=== PATIENT | male | born 1935 | race Caucasian/White ===

== ENCOUNTER → 2017-10-22 | Outpatient (CLI) | payer MEDICARE, BC ==
--- NOTE | 2017-10-22 08:55 | XR ---
Lumbosacral spine HISTORY: M 54.89, M 46.1 5 views of lumbosacral spine No evident spondylolysis or spondylolisthesis. Lumbar vertebral bodies show preserved height. Bone mi neralization is reduced. Mild anterior wedging present at T12, possibly mild at L1. There is extensiv e spondylosis. Loss of disc height present at the intervertebral levels is noted with associated vacu um phenomenon. Dense vascular calcifications are present. Surgical clips are present in the right upp er quadrant. Sclerosis present in the posterior elements of the lower lumbar spine. IMPRESSION: Degenerative disc disease, facet arthropathy, osteopenia. Mild anterior compression defor mity T12. There is resulting mild kyphosis. Additional findings above.
--- NOTE | 2017-10-22 13:58 | XR ---
Right hip HISTORY: M 46.1 2 views of the right hip There is dense vascular calcification noted incidentally. Bone mineralization is mildly reduced. Alig nment, joint space are within normal limits. Mild marginal spurring present. IMPRESSION: Osteopenia, mild osteoarthritis.
== END | disposition home or self-care (01) ==
LOC: RADXRMAIN 07:13
PROVIDERS: ATTEND Family Medicine
DX: M51.37 Other intervertebral disc degeneration, lumbosacral region (principal); M47.817 Spondylosis without myelopathy or radiculopathy, lumbosacral region; M46.97 Unspecified inflammatory spondylopathy, lumbosacral region; M85.88 Other specified disorders of bone density and structure, other site; M16.11 Unilateral primary osteoarthritis, right hip
CPT/HCPCS: 72110; 73502

== ENCOUNTER → 2021-10-30 | Outpatient (CLI) | payer MEDICARE, BC ==
--- NOTE | 2021-10-30 14:38 | MR ---
EXAMINATION TYPE: MR brain wo/w con DATE OF EXAM: 10/30/2021 COMPARISON: None HISTORY: Neoplasm, atypical dementia, hallucinations, age related cognitive decline TECHNIQUE: Multiplanar, multisequence images of the brain and brainstem is performed without and with IV contras t, utilizing 7 mL intravenous Gadavist . FINDINGS: There is motion on the exam. Diffusion weighted images demonstrate no evidence of a recent infarct or other diffusion abnormality. There is no extra-axial fluid collection, and periventricular, pericallosal and subcortical conflue nt and scattered hyperintensities are present on inversion recovery T2-weighted sequences. The ventr icular system and cisternal spaces are normal in size and appearance. The brain volume shows age-rel ated atrophy. Midline structures demonstrate normal morphology. The craniocervical junction appears within normal limits. Post contrast images demonstrate no abnormal enhancement. The dural venous sinuses appear pa tent. The visualized sinuses are clear and the globes are intact. IMPRESSION: Age-related atrophy and probable chronic small vessel ischemia. There is motion on the ex am.
== END | disposition home or self-care (01) ==
LOC: RADMRIMAIN 09:23
PROVIDERS: ATTEND Psychiatry & Neurology Neurology
DX: G31.9 Degenerative disease of nervous system, unspecified (principal)
CPT/HCPCS: 70553; A9585

== ENCOUNTER 2021-11-10 18:28 | Observation (INO) | payer MEDICARE, BC ==
[2021-11-10 19:03] LABS: Glucose,Whole Blood 91 mg/dL (75-99)
[2021-11-10] MEDS ORDERED: ACETAMINOPHEN TAB 500 MG TAB PO STA (19:03)
[2021-11-10 19:32] LABS: Appearance,Urine Clear (Clear); Bacteria,Urine Occasional /hpf; Bilirubin,Urine Negative (Negative); Blood,Urine Trace (Negative); Color,Urine Yellow; Glucose,Urine (UA) Negative (Negative); Hyaline Casts,Urine 4 /lpf (0-2); Ketones,Urine Negative (Negative); Leukocyte Esterase,Urine Trace (Negative); Mucus,Urine Many /hpf; Nitrite,Urine Negative (Negative); PH, Urine 5.5 (5.0-8.0); Protein,Urine 1+ (Negative); RBC,Urine 2 /hpf (0-5); Specific Gravity,Urine 1.027 (1.001-1.035); Squamous Epithelial Cell,Urine 1 /hpf (0-4); Urobilinogen,Urine <2.0 mg/dL (<2.0); WBC,Urine 2 /hpf (0-5)
[2021-11-10 19:33] LABS: Basophils % (A) 1 %; Eosinophils % (A) 0 %; HCT 36.4 % (39.0-53.0); HGB 11.9 gm/dL (13.0-17.5); Lymphocytes # (A) 0.7 k/uL (1.0-4.8); Lymphocytes % (A) 12 %; MCH 31.9 pg (25.0-35.0); MCHC 32.6 g/dL (31.0-37.0); Mean Platelet Volume 9.3; Monocytes # (A) 0.6 k/uL (0-1.0); Monocytes % (A) 10 %; Neutrophils # (A) 4.3 k/uL (1.3-7.7); Neutrophils % (A) 75 %; Platelet Count 101 k/uL (150-450); RBC 3.72 m/uL (4.30-5.90); RDW 13.1 % (11.5-15.5); WBC 5.7 k/uL (3.8-10.6)
[2021-11-10] MEDS ORDERED: cefTRIAXone IN SWFI 1,000 MG/10 ML SYRINGE IVP STA (19:36)
[2021-11-10 19:37] LABS: Albumin 3.6 g/dL (3.5-5.0); Calcium 8.6 mg/dL (8.4-10.2); Total Bilirubin 0.8 mg/dL (0.2-1.3); Total Protein 6.4 g/dL (6.3-8.2)
[2021-11-10 19:38] LABS: Prothrombin Time 11.1 sec (9.0-12.0)
[2021-11-10 19:40] LABS: Potassium 4.5 mmol/L (3.5-5.1)
[2021-11-10] MEDS: SODIUM CHLORIDE 0.9% 1,000 ML IV SCH (19:50)
[2021-11-10] MEDS: SODIUM CHLORIDE 0.9% 500 ML 500 ML IV SCH (19:50)
--- NOTE | 2021-11-10 20:23 | CT ---
EXAMINATION TYPE: CT brain wo con DATE OF EXAM: 11/10/2021 COMPARISON: None HISTORY: drowsy, fever CT DLP: 1076.4 mGycm Automated exposure control for dose reduction was used. Images of the brain obtained without contrast. There is cerebral cortical atrophy. There is no mass effect or midline shift. There is no sign of int racranial hemorrhage. Calvarium is intact. There is normal aeration of the mastoid sinuses. IMPRESSION: Cerebral atrophy. No acute intracranial abnormality.
--- NOTE | 2021-11-10 20:59 | XR ---
EXAMINATION TYPE: XR chest 2V DATE OF EXAM: 11/10/2021 COMPARISON: NONE HISTORY: Fever TECHNIQUE: 2 view FINDINGS: Heart is normal. Lungs are clear of infiltrate. There are sternal wires. There are chest le ads. Costophrenic angles are clear. Bony thorax is intact. IMPRESSION: No active cardiopulmonary disease.
[2021-11-10] MEDS ORDERED: NALOXONE 0.4 MG/ML 1 ML VIAL IV PRN (21:44)
--- NOTE | 2021-11-10 21:44 | ED ---
Neuro HPI - General Chief Complaint: Neuro Symptoms/Deficit Stated Complaint: AMS Time Seen by Provider: 11/10/21 18:29 Source: EMS Mode of arrival: EMS Limitations: no limitations - History of Present Illness Is the patient presenting with stroke symptoms?: Yes Last Known Well Date: 11/10/21 Last Known Well Time: 14:00 Initial Comments: 86-year-old male past history of dementia, Parkinson's presents emergency Department with altered mental status. states the patient has been in bed all day long. She attempted to wake him up this evening and felt that he had a right-sided facial droop. EMS was called to the house. They did find that he had a high fever of 102. He has had a mild cough however no other symptoms of infection. No sick contacts with similar symptoms. Family was unaware that the patient had a fever. No shortness of breath. Patient denies headaches or visual changes. No nausea or vomiting. Denies abdominal pain. No changes in his bowel or bladder habits. Admits to some nausea with decreased oral intake. Patient is vaccinated and boosted against Covid. He denies any rashes. No previous history of stroke. Upon hospital arrival the facial droop has resolved. There is no reported weakness in the arms or legs. Patient does remain confused. No other alleviating, precipitating or modifying factors - Related Data Home Medications: Home Medications Medication Instructions Recorded Confirmed ALPRAZolam [Xanax] 0.25 mg PO Q6H PRN 11/10/21 11/10/21 Aspirin EC [Ecotrin Low Dose] 81 mg PO DAILY 11/10/21 11/10/21 Latanoprost [Xalatan 0.005%] 1 drop BOTH EYES HS 11/10/21 11/10/21 Memantine [Namenda] 10 mg PO BID 11/10/21 11/10/21 Metoprolol Tartrate [Lopressor] 50 mg PO BID-W/MEALS 11/10/21 11/10/21 [place]-3 Fatty Acids/Fish Oil [Fish 1 cap PO DAILY 11/10/21 11/10/21 Oil 1,000 mg Softgel] QUEtiapine [SEROquel] 25 mg PO HS 11/10/21 11/10/21 lisinopriL [Zestril] 5 mg PO DAILY 11/10/21 11/10/21 Allergies/Adverse Reactions: Allergies Allergy/AdvReac Type Severity Reaction Status Date / Time No Known Allergies Allergy Verified 11/10/21 20:32 Review of Systems ROS Statement: Those systems with pertinent positive or pertinent negative responses have been documented in the HPI. ROS Other: All systems not noted in ROS Statement are negative. General Exam Limitations: altered mental status General appearance: alert, in no apparent distress Head exam: Present: atraumatic, normocephalic, normal inspection Eye exam: Present: normal appearance, PERRL, EOMI. Absent: scleral icterus, conjunctival injection, periorbital swelling ENT exam: Present: normal exam, mucous membranes moist Neck exam: Present: normal inspection. Absent: tenderness, meningismus, lymphadenopathy Respiratory exam: Present: normal lung sounds bilaterally. Absent: respiratory distress, wheezes, rales, rhonchi, stridor Cardiovascular Exam: Present: regular rate, normal rhythm, normal heart sounds. Absent: systolic murmur, diastolic murmur, rubs, gallop, clicks GI/Abdominal exam: Present: soft, normal bowel sounds. Absent: distended, t enderness, guarding, rebound, rigid Extremities exam: Present: normal inspection, full ROM, normal capillary refill. Absent: tenderness, pedal edema, joint swelling, calf tenderness Back exam: Present: normal inspection Neurological exam: Present: alert, CN II-XII intact, other (confused) Psychiatric exam: Present: normal affect, normal mood Skin exam: Present: warm, dry, intact, normal color. Absent: rash Stroke MDM - Lab Data Result diagrams: 11/12/21 06:42 11/12/21 06:42 Lab Results 11/10/21 11/10/21 11/10/21 Range/Units 18:59 19:03 19:03 WBC 5.7 (3.8-10.6) k/uL RBC 3.72 L (4.30-5.90) m/uL Hgb 11.9 L (13.0-17.5) gm/dL Hct 36.4 L (39.0-53.0) % MCV 98.0 (80.0-100.0) fL MCH 31.9 (25.0-35.0) pg MCHC 32.6 (31.0-37.0) g/dL RDW 13.1 (11.5-15.5) % Plt Count 101 L (150-450) k/uL MPV 9.3 Neutrophils % 75 % Lymphocytes % 12 % Monocytes % 10 % Eosinophils % 0 % Basophils % 1 % Neutrophils # 4.3 (1.3-7.7) k/uL Lymphocytes # 0.7 L (1.0-4.8) k/uL Monocytes # 0.6 (0-1.0) k/uL Eosinophils # 0.0 (0-0.7) k/uL Basophils # 0.0 (0-0.2) k/uL PT 11.1 (9.0-12.0) sec INR 1.0 (<1.2) APTT 23.0 (22.0-30.0) sec Sodium (137-145) mmol/L Potassium (3.5-5.1) mmol/L Chloride (98-107) mmol/L Carbon Dioxide (22-30) mmol/L Anion Gap mmol/L BUN (9-20) mg/dL Creatinine (0.66-1.25) mg/dL Est GFR (CKD-EPI)AfAm (>60 ml/min/1.73 sqM) Est GFR (CKD-EPI)NonAf (>60 ml/min/1.73 sqM) Glucose (74-99) mg/dL POC Glucose (mg/dL) 91 (75-99) mg/dL POC Glu Rn Ent ID Madelaine Hou Plasma Lactic Acid Dev (0.7-2.0) mmol/L Calcium (8.4-10.2) mg/dL Total Bilirubin (0.2-1.3) mg/dL AST (17-59) U/L ALT (4-49) U/L Alkaline Phosphatase (38-126) U/L Troponin I (0.000-0.034) ng/mL Total Protein (6.3-8.2) g/dL Albumin (3.5-5.0) g/dL Lipase (23-300) U/L Urine Color Urine Appearance (Clear) Urine pH (5.0-8.0) Ur Specific [place] (1.001-1.035) Urine Protein (Negative) Urine Glucose (UA) (Negative) Urine Ketones (Negative) Urine Blood (Negative) Urine Nitrite (Negative) Urine Bilirubin (Negative) Urine Urobilinogen (<2.0) mg/dL Ur Leukocyte Esterase (Negative) Urine RBC (0-5) /hpf Urine WBC (0-5) /hpf Ur Squamous Epith Cells (0-4) /hpf Urine Bacteria (None) /hpf Hyaline Casts (0-2) /lpf Urine Mucus (None) /hpf Coronavirus (PCR) (Not Detectd) Influenza Type A RNA (Not Detectd) Influenza Type B (PCR) (Not Detectd) 11/10/21 11/10/21 11/10/21 Range/Units 19:03 19:03 19:03 WBC (3.8-10.6) k/uL RBC (4.30-5.90) m/uL Hgb (13.0-17.5) gm/dL Hct (39.0-53.0) % MCV (80.0-100.0) fL MCH (25.0-35.0) pg MCHC (31.0-37.0) g/dL RDW (11.5-15.5) % Plt Count (150-450) k/uL MPV Neutrophils % % Lymphocytes % % Monocytes % % Eosinophils % % Basophils % % Neutrophils # (1.3-7.7) k/uL Lymphocytes # (1.0-4.8) k/uL Monocytes # (0-1.0) k/uL Eosinophils # (0-0.7) k/uL Basophils # (0-0.2) k/uL PT (9.0-12.0) sec INR (<1.2) APTT (22.0-30.0) sec Sodium 138 (137-145) mmol/L Potassium 4.5 (3.5-5.1) mmol/L Chloride 107 (98-107) mmol/L Carbon Dioxide 24 (22-30) mmol/L Anion Gap 7 mmol/L BUN 23 H (9-20) mg/dL Creatinine 1.19 (0.66-1.25) mg/dL Est GFR (CKD-EPI)AfAm 65 (>60 ml/min/1.73 sqM) Est GFR (CKD-EPI)NonAf 56 (>60 ml/min/1.73 sqM) Glucose 92 (74-99) mg/dL POC Glucose (mg/dL) (75-99) mg/dL POC Glu Rn Ent ID Plasma Lactic Acid Dev 1.3 (0.7-2.0) mmol/L Calcium 8.6 (8.4-10.2) mg/dL Total Bilirubin 0.8 (0.2-1.3) mg/dL AST 30 (17-59) U/L ALT 16 (4-49) U/L Alkaline Phosphatase 51 (38-126) U/L Troponin I (0.000-0.034) ng/mL Total Protein 6.4 (6.3-8.2) g/dL Albumin 3.6 (3.5-5.0) g/dL Lipase 60 (23-300) U/L Urine Color Yellow Urine Appearance Clear (Clear) Urine pH 5.5 (5.0-8.0) Ur Specific [place] 1.027 (1.001-1.035) Urine Protein 1+ H (Negative) Urine Glucose (UA) Negative (Negative) Urine Ketones Negative (Negative) Urine Blood Trace H (Negative) Urine Nitrite Negative (Negative) Urine Bilirubin Negative (Negative) Urine Urobilinogen <2.0 (<2.0) mg/dL Ur Leukocyte Esterase Trace H (Negative) Urine RBC 2 (0-5) /hpf Urine WBC 2 (0-5) /hpf Ur Squamous Epith Cells 1 (0-4) /hpf Urine Bacteria Occasional H (None) /hpf Hyaline Casts 4 H (0-2) /lpf Urine Mucus Many H (None) /hpf Coronavirus (PCR) (Not Detectd) Influenza Type A RNA (Not Detectd) Influenza Type B (PCR) (Not Detectd) 11/10/21 11/10/21 11/10/21 Range/Units 19:03 19:03 19:03 WBC (3.8-10.6) k/uL RBC (4.30-5.90) m/uL Hgb (13.0-17.5) gm/dL Hct (39.0-53.0) % MCV (80.0-100.0) fL MCH (25.0-35.0) pg MCHC (31.0-37.0) g/dL RDW (11.5-15.5) % Plt Count (150-450) k/uL MPV Neutrophils % % Lymphocytes % % Monocytes % % Eosinophils % % Basophils % % Neutrophils # (1.3-7.7) k/uL Lymphocytes # (1.0-4.8) k/uL Monocytes # (0-1.0) k/uL Eosinophils # (0-0.7) k/uL Basophils # (0-0.2) k/uL PT (9.0-12.0) sec INR (<1.2) APTT (22.0-30.0) sec Sodium (137-145) mmol/L Potassium (3.5-5.1) mmol/L Chloride (98-107) mmol/L Carbon Dioxide (22-30) mmol/L Anion Gap mmol/L BUN (9-20) mg/dL Creatinine (0.66-1.25) mg/dL Est GFR (CKD-EPI)AfAm (>60 ml/min/1.73 sqM) Est GFR (CKD-EPI)NonAf (>60 ml/min/1.73 sqM) Glucose (74-99) mg/dL POC Glucose (mg/dL) (75-99) mg/dL POC Glu Rn Ent ID Plasma Lactic Acid Dev (0.7-2.0) mmol/L Calcium (8.4-10.2) mg/dL Total Bilirubin (0.2-1.3) mg/dL AST (17-59) U/L ALT (4-49) U/L Alkaline Phosphatase (38-126) U/L Troponin I <0.012 (0.000-0.034) ng/mL Total Protein (6.3-8.2) g/dL Albumin (3.5-5.0) g/dL Lipase (23-300) U/L Urine Color Urine Appearance (Clear) Urine pH (5.0-8.0) Ur Specific [place] (1.001-1.035) Urine Protein (Negative) Urine Glucose (UA) (Negative) Urine Ketones (Negative) Urine Blood (Negative) Urine Nitrite (Negative) Urine Bilirubin (Negative) Urine Urobilinogen (<2.0) mg/dL Ur Leukocyte Esterase (Negative) Urine RBC (0-5) /hpf Urine WBC (0-5) /hpf Ur Squamous Epith Cells (0-4) /hpf Urine Bacteria (None) /hpf Hyaline Casts (0-2) /lpf Urine Mucus (None) /hpf Coronavirus (PCR) Detected A (Not Detectd) Influenza Type A RNA Not Detected (Not Detectd) Influenza Type B (PCR) Not Detected (Not Detectd) - Medical Decision Making Upon arrival the patient was placed into room 15. Thorough history and physical exam was performed. IV access is established and the patient is given a liter bolus of normal saline followed by 130 mL/h. Patient additionally given a gram of Tylenol for his fever. Laboratory studies were conducted and reviewed. Casimiro fry does demonstrate occasional bacteria for which she is given a gram of Rocephin. Patient does test positive for Covid. CT of the brain demonstrates cerebral atrophy with no acute process. Chest x-ray demonstrates no active cardiopulmonary process. Patient is given antibody infusion. As the does report to facial droop I do feel that the patient should be admitted for neurologic evaluation for which family did agree to. Spoke with Dr. Carlson who agreed to admit the patient. Patient taken to the floor in stable condition 11/10/21 21:42 EKG demonstrates a sinus rhythm with rate of 85. SD interval 200. QRS 88. QTC of 379. No acute ST segment elevations or depressions. Past Medical History Past Medical History: Dementia History of Any Multi-Drug Resistant Organisms: None Reported Past Surgical History: Coronary Bypass/CABG Past Psychological History: No Psychological Hx Reported Smoking Status: Never smoker Past Alcohol Use History: None Reported Past Drug Use History: None Reported Course Vital Signs 11/10/21 11/10/21 11/10/21 18:40 19:59 21:59 Temperature 101.2 F H Pulse Rate 85 65 61 Pulse Rate [ Soils Technician ] Respiratory 18 16 16 Rate Blood Pressure 149/72 121/78 115/67 Blood Pressure [Left Arm] O2 Sat by Pulse 99 95 96 Oximetry 11/10/21 23:49 Temperature 98.9 F Pulse Rate Pulse Rate [ 68 Soils Technician ] Respiratory 16 Rate Blood Pressure Blood Pressure 142/70 [Left Arm] O2 Sat by Pulse 97 Oximetry Disposition Clinical Impression: Transient cerebral ischemia, Pyrexia, Acute encephalopathy, COVID-19 virus infection, Abnormal urine Disposition: ADMITTED IP TO THIS HOSP Condition: Stable Is patient prescribed a controlled substance at d/c from ED?: No Decision to Admit Reason: Admit from EC Decision Date: 11/10/21 Decision Time: 21:44
[2021-11-10] MEDS ORDERED: BEBTELOVIMAB (EUA) 175 MG/2 ML VIAL IV ONE (22:45)
[2021-11-11] MEDS ORDERED: ALPRAZolam 0.25 MG TAB PO PRN
[2021-11-11] MEDS: SODIUM CHLORIDE 0.9% 1,000 ML IV SCH ×3 (05:06→19:25)
[2021-11-11] MEDS: SODIUM CHLORIDE 0.9% 500 ML 500 ML IV SCH (05:06)
[2021-11-11] MEDS: METOPROLOL TARTRATE 50 MG TAB PO SCH ×2 (06:52→16:24)
[2021-11-11] MEDS ORDERED: NON FORMULARY DRUG (Omega-3 Fatty Acids/Fish Oil [Fish Oil 1,000 Mg Softgel] 1 EACH Capsul PO SCH (09:00)
[2021-11-11] MEDS: ASPIRIN 81 MG PO SCH (09:37)
[2021-11-11] MEDS: MEMANTINE 10 MG TAB PO SCH ×2 (09:37→20:07)
[2021-11-11] MEDS: lisinopriL 5 MG TAB PO SCH (09:37)
[2021-11-11 09:55] LABS: Calcium 8.3 mg/dL (8.4-10.2); Potassium 3.8 mmol/L (3.5-5.1)
[2021-11-11 10:05] LABS: Basophils # (A) 0.1 k/uL (0-0.2); Basophils % (A) 1 %; Eosinophils % (A) 0 %; HCT 38.9 % (39.0-53.0); HGB 12.5 gm/dL (13.0-17.5); Lymphocytes # (A) 0.8 k/uL (1.0-4.8); Lymphocytes % (A) 14 %; MCH 32.6 pg (25.0-35.0); MCHC 32.2 g/dL (31.0-37.0); MCV 101.1 fL (80.0-100.0); Mean Platelet Volume 9.3; Monocytes # (A) 0.5 k/uL (0-1.0); Monocytes % (A) 10 %; Neutrophils # (A) 3.9 k/uL (1.3-7.7); Neutrophils % (A) 72 %; RBC 3.85 m/uL (4.30-5.90); RDW 13.2 % (11.5-15.5); WBC 5.4 k/uL (3.8-10.6)
[2021-11-11 10:53] LABS: Platelet Count 98 k/uL (150-450)
[2021-11-11] MEDS: ACETAMINOPHEN TAB 325 MG TAB PO PRN (11:29)
--- NOTE | 2021-11-11 12:10 | P.HPIM ---
History of Present Illness H&P Date: 11/11/21 Chief Complaint: Altered mental status 86-year-old male patient presented emergency room via EMS on 11/10/2021 with complaints of altered mental status. Patient's stated that he had been in bed all day long and when she attempted to wake him up she believed him to have a right-sided facial droop. On sent temperature from EMS was 102 and had a mild cough. On arrival to the emergency room facial droop had resolved and patient has no history of stroke or TIA. Patient had no recent travels pulse out of state or country and no known contact with individuals that were sick. Patient had denied vomiting, diarrhea, shortness of breath, headaches, or visual changes. Patient has a past medical history of Parkinson's, dementia, coronary bypass, and hypertension. In the emergency room patient was treated with Rocephin for occasional bacteria in urinalysis. He did receive interbody fusion for a positive Covid test. Chest x-ray resulted no active cardiopulmonary process and CT of the brain demonstrated cerebral atrophy with no acute process. Initial set of vitals blood pressure 115/67, pulse rate is 61, esterase 16, O2 saturation 96% on room air. Initial blood work revealed WBC count 5.4, hemoglobin 12.5, hematocrit 30.9, platelet count of 98. Chemistry revealed a sodium of 140, potassium 3.8, albumin of 18, creatinine 1.1 with a glucose of 108. Again he did test positive for Covid and his urine did have trace leukocytes and occasional bacteria. Review of Systems Constitutional: Reports daytime sleepiness, Reports fatigue, Reports fever Ears, nose, mouth and throat: Reports as per HPI Cardiovascular: Reports as per HPI Respiratory: Reports as per HPI Gastrointestinal: Reports loss of appetite, Reports nausea Genitourinary: Reports as per HPI Musculoskeletal: Reports as per HPI Integumentary: Reports as per HPI Neurological: Reports as per HPI, Reports memory loss Psychiatric: Reports as per HPI Endocrine: Reports fatigue Hematologic/Lymphatic: Reports as per HPI Allergic/Immunologic: Reports as per HPI Past Medical History Past Medical History: Dementia History of Any Multi-Drug Resistant Organisms: None Reported Past Surgical History: Coronary Bypass/CABG Past Psychological History: No Psychological Hx Reported Smoking Status: Never smoker Past Alcohol Use History: None Reported Past Drug Use History: None Reported Medications and Allergies Home Medications Medication Instructions Recorded Confirmed Type ALPRAZolam [Xanax] 0.25 mg PO Q6H PRN 11/10/21 11/10/21 History Aspirin EC [Ecotrin Low Dose] 81 mg PO DAILY 11/10/21 11/10/21 History Latanoprost [Xalatan 0.005%] 1 drop BOTH EYES HS 11/10/21 11/10/21 History Memantine [Namenda] 10 mg PO BID 11/10/21 11/10/21 History Metoprolol Tartrate [Lopressor] 50 mg PO BID-W/MEALS 11/10/21 11/10/21 History [place]-3 Fatty Acids/Fish Oil [Fish 1 cap PO DAILY 11/10/21 11/10/21 History Oil 1,000 mg Softgel] QUEtiapine [SEROquel] 25 mg PO HS 11/10/21 11/10/21 History lisinopriL [Zestril] 5 mg PO DAILY 11/10/21 11/10/21 History Allergies Allergy/AdvReac Type Severity Reaction Status Date / Time No Known Allergies Allergy Verified 11/10/21 20:32 Physical Exam Vitals: Vital Signs Temp Pulse Pulse Resp BP BP Pulse Ox 11/11/21 08:00 99.7 F H 68 16 110/56 95 11/11/21 04:00 98.8 F 70 18 138/71 96 11/11/21 02:00 68 16 11/10/21 23:49 98.9 F 68 16 142/70 97 11/10/21 21:59 61 16 115/67 96 11/10/21 19:59 65 16 121/78 95 11/10/21 18:40 101.2 F H 85 18 149/72 99 Intake and Output 11/10/21 11/11/21 11/11/21 22:59 06:59 14:59 Intake Total 240 Output Total 400 150 Balance -400 -150 240 Intake: Oral 240 Output: Urine 400 150 Other: Voiding Method Urinal Diaper Weight 70.352 kg GENERAL: Fatigued, well-nourished and in no acute distress. Alert and oriented name and place HEAD: Atraumatic, normocephalic. EYES: Pupils equal round and reactive to light, extraocular movements intact, sclera anicteric, conjunctiva are normal. ENT:nares patent, oropharynx clear without exudates. Moist mucous membranes. NECK: Normal range of motion, supple without lymphadenopathy or JVD, no thyromegaly LUNGS: Breath sounds clear to auscultation bilaterally and equal. No wheezes rales or rhonchi. HEART: Regular rate and rhythm without murmurs, rubs or gallops.S1S2 Normal ABDOMEN: Soft, nontender, normoactive bowel sounds. No guarding, no rebound. No masses appreciated. EXTREMITIES: Normal range of motion, no pitting or edema. No clubbing or cyanosis. Move all extremities to command Optometrist Assistant strength for 4 equal bilateral NEUROLOGICAL: Cranial nerves II through XII grossly intact. Speech slow, but normal. PSYCH: Normal mood, normal affect. SKIN: Warm, Dry, normal turgor, no rashes or lesions noted. Results CBC & Chem 7: 11/11/21 08:06 11/11/21 08:06 Labs: Abnormal Lab Results - Last 24 Hours (Table) 11/10/21 11/10/21 11/10/21 Range/Units 19:03 19:03 19:03 RBC 3.72 L (4.30-5.90) m/uL Hgb 11.9 L (13.0-17.5) gm/dL Hct 36.4 L (39.0-53.0) % MCV (80.0-100.0) fL Plt Count 101 L (150-450) k/uL Lymphocytes # 0.7 L (1.0-4.8) k/uL Chloride (98-107) mmol/L Carbon Dioxide (22-30) mmol/L BUN 23 H (9-20) mg/dL Glucose (74-99) mg/dL Calcium (8.4-10.2) mg/dL Urine Protein 1+ H (Negative) Urine Blood Trace H (Negative) Ur Leukocyte Esterase Trace H (Negative) Urine Bacteria Occasional H (None) /hpf Hyaline Casts 4 H (0-2) /lpf Urine Mucus Many H (None) /hpf Coronavirus (PCR) (Not Detectd) 11/10/21 11/11/21 11/11/21 Range/Units 19:03 08:06 08:06 RBC 3.85 L (4.30-5.90) m/uL Hgb 12.5 L (13.0-17.5) gm/dL Hct 38.9 L (39.0-53.0) % MCV 101.1 H (80.0-100.0) fL Plt Count 98 L (150-450) k/uL Lymphocytes # 0.8 L (1.0-4.8) k/uL Chloride 110 H (98-107) mmol/L Carbon Dioxide 20 L (22-30) mmol/L BUN (9-20) mg/dL Glucose 108 H (74-99) mg/dL Calcium 8.3 L (8.4-10.2) mg/dL Urine Protein (Negative) Urine Blood (Negative) Ur Leukocyte Esterase (Negative) Urine Bacteria (None) /hpf Hyaline Casts (0-2) /lpf Urine Mucus (None) /hpf Coronavirus (PCR) Detected A (Not Detectd) Thrombosis Risk Factor Assmnt - DVT/VTE Prophylaxis DVT/VTE Prophylaxis: Pharmacologic Prophylaxis ordered - Choose All That Apply Any of the Below Risk Factors Present?: No Other Risk Factors: Yes Each Risk Factor Represents 2 Points: Patient confined to bed Each Risk Factor Represents 3 Points: Age 75 years or older Thrombosis Risk Factor Assessment Total Risk Factor Score: 5 Thrombosis Risk Factor Assessment Level: High Risk Assessment and Plan (1) COVID-19 virus infection Current Visit: Yes Status: Acute Code(s): U07.1 - COVID-19 SNOMED Code(s): 988192945 (2) Acute encephalopathy Current Visit: Yes Status: Acute Code(s): G93.40 - ENCEPHALOPATHY, UNSPECIFIED SNOMED Code(s): 93305324 (3) History of dementia Current Visit: Yes Status: Acute Code(s): Z86.59 - PERSONAL HISTORY OF OTHER MENTAL AND BEHAVIORAL DISORDERS SNOMED Code(s): 612265892 (4) Leukocytosis Current Visit: Yes Status: Acute Code(s): D72.829 - ELEVATED WHITE BLOOD CELL COUNT, UNSPECIFIED SNOMED Code(s): 222396630 (5) Abnormal urine Current Visit: Yes Status: Acute Code(s): R82.90 - UNSPECIFIED ABNORMAL FINDINGS IN URINE SNOMED Code(s): 579223158 (6) History of coronary artery bypass graft Current Visit: Yes Status: Acute Code(s): Z95.1 - PRESENCE OF AORTOCORONARY BYPASS GRAFT SNOMED Code(s): 941298807 (7) Pyrexia Current Visit: Yes Status: Acute Code(s): R50.9 - FEVER, UNSPECIFIED SNOMED Code(s): 003708557 (8) Transient cerebral ischemia Current Visit: Yes Status: Acute Code(s): G45.9 - TRANSIENT CEREBRAL ISCHEMIC ATTACK, UNSPECIFIED SNOMED Code(s): 180703635 Plan: Continue current medication regimen as prescribed Utilize acetaminophen for fever and pain Continue gentle rehydration with IV fluids Healthy heart diet CBC and comp for tomorrow Omeprazole for PPI prophylaxis Incentive spirometry at bedside, 10 times an hour while awake We'll continue to follow closely and reassess again tomorrow Time with Patient: Greater than 30
--- NOTE | 2021-11-11 16:54 | P.CNNES ---
History of Present Illness Consult date: 11/11/21 Reason for Consult: right facial droop, TIA History of Present Illness: The pt is an 86y/o male seen in neurologic consultation on October, via teleneurology. The patient is being seen because of reported transient right facial droop and possible TIA. Facial droop was reported by the patient's , to be present at home. History is obtained from the chart. The patient was reportedly very poorly responsive at home. noted him to have a right facial droop. EMS was called to the home. When they arrived, they found the patient to be febrile and lethargic. The patient was brought into the emergency department where a CT scan of the brain was performed. There is no reported evidence of acute hemorrhage or infarct. The patient was found to be positive for Covid 19 infection. According to the nurse at the bedside, the patient has generalized weakness but is able to move all 4 extremities. He is reportedly confused, with dementia at baseline. He also reportedly has a history of Parkinson's disease. Review of Systems ROS unobtainable: due to mental status Past Medical History Past Medical History: Dementia History of Any Multi-Drug Resistant Organisms: None Reported Past Surgical History: Coronary Bypass/CABG Past Psychological History: No Psychological Hx Reported Smoking Status: Never smoker Past Alcohol Use History: None Reported Past Drug Use History: None Reported Medications and Allergies Home Medications Medication Instructions Recorded Confirmed Type ALPRAZolam [Xanax] 0.25 mg PO Q6H PRN 11/10/21 11/10/21 History Aspirin EC [Ecotrin Low Dose] 81 mg PO DAILY 11/10/21 11/10/21 History Latanoprost [Xalatan 0.005%] 1 drop BOTH EYES HS 11/10/21 11/10/21 History Memantine [Namenda] 10 mg PO BID 11/10/21 11/10/21 History Metoprolol Tartrate [Lopressor] 50 mg PO BID-W/MEALS 11/10/21 11/10/21 History [place]-3 Fatty Acids/Fish Oil [Fish 1 cap PO DAILY 11/10/21 11/10/21 History Oil 1,000 mg Softgel] QUEtiapine [SEROquel] 25 mg PO HS 11/10/21 11/10/21 History lisinopriL [Zestril] 5 mg PO DAILY 11/10/21 11/10/21 History Allergies Allergy/AdvReac Type Severity Reaction Status Date / Time No Known Allergies Allergy Verified 11/10/21 20:32 Physical Examination - Vital Signs Vital Signs: Vital Signs Temp Pulse Pulse Resp BP BP Pulse Ox 11/11/21 12:00 98.8 F 72 17 125/60 96 11/11/21 08:00 99.7 F H 68 16 110/56 95 11/11/21 04:00 98.8 F 70 18 138/71 96 11/11/21 02:00 68 16 11/10/21 23:49 98.9 F 68 16 142/70 97 11/10/21 21:59 61 16 115/67 96 11/10/21 19:59 65 16 121/78 95 11/10/21 18:40 101.2 F H 85 18 149/72 99 Intake and Output 11/10/21 11/11/21 11/11/21 22:59 06:59 14:59 Intake Total 240 Output Total 400 150 Balance -400 -150 240 Intake: Oral 240 Output: Urine 400 150 Other: Voiding Method Urinal Diaper Weight 70.352 kg Gen.: The patient is reclining in the bed. He is in no acute distress. HEENT: Head is atraumatic, normocephalic. Fundus not visualized. There is no scleral icterus. Mucous membranes are dry. Neck: Without carotid bruits Heart: Regular rate and rhythm Extremities: Without edema Neurological examination Mental status: The patient is oriented to his name, age and date of . He is able to state that he is in a "hospital". He reports the current year to be "2019". The patient's speech is hypophonic but clear. Cranial nerves: Pupils are equal at 3 mm and reactive. The patient is unable to count fingers for visual field testing. Extraocular movements are intact. There is no nystagmus. There is no obvious facial asymmetry. Hearing is diminished. Motor: The patient has generalized weakness with strength at 4/5 throughout. Sensation: Grossly intact to light touch. Coordination: Finger to nose and rapid alternating movements are intact. The patient does have an intention tremor of the bilateral upper extremities. Deep tendon reflexes: 3+/4+ throughout Gait: Not assessed Results - Laboratory Findings CBC and BMP: 11/11/21 08:06 11/11/21 08:06 Abnormal Lab Findings: Abnormal Labs 11/10/21 11/10/21 11/10/21 19:03 19:03 19:03 RBC 3.72 L Hgb 11.9 L Hct 36.4 L MCV Plt Count 101 L Lymphocytes # 0.7 L Chloride Carbon Dioxide BUN 23 H Glucose Calcium Urine Protein 1+ H Urine Blood Trace H Ur Leukocyte Esterase Trace H Urine Bacteria Occasional H Hyaline Casts 4 H Urine Mucus Many H Coronavirus (PCR) 11/10/21 11/11/21 11/11/21 19:03 08:06 08:06 RBC 3.85 L Hgb 12.5 L Hct 38.9 L MCV 101.1 H Plt Count 98 L Lymphocytes # 0.8 L Chloride 110 H Carbon Dioxide 20 L BUN Glucose 108 H Calcium 8.3 L Urine Protein Urine Blood Ur Leukocyte Esterase Urine Bacteria Hyaline Casts Urine Mucus Coronavirus (PCR) Detected A Assessment and Plan Assessment: 1. Acute toxic encephalopathy, secondary to infection 2. Questionable right facial asymmetry, may also be secondary to infection 3. Urinary tract infection 4. Reported history of dementia 5. Reported history of Parkinson's disease, not on treatment Plan: 1. Your treatment of the patient's Covid 19 infection 2. TIA/stroke workup is not necessary. Patient's symptoms are likely all related to infection. Thank you for allowing us to participate in the care of this patient. There is no further neurologic intervention needed at this time. Please call with questions or concerns Time with Patient: Greater than 30 (spent 35 minutes with patient via telemedicine)
[2021-11-11 19:59] VITALS: RESP 18
[2021-11-11] MEDS: HEPARIN SODIUM,PORCINE/PF 5,000 UNIT/0.5 ML SYRINGE SQ SCH (20:07)
[2021-11-11] MEDS ORDERED: QUEtiapine 25 MG TAB PO SCH (21:00)
[2021-11-11] MEDS ORDERED: LATANOPROST 0.005% OPHTH DROPS 2.5 ML BTL BOTH EYES SCH (21:00)
[2021-11-12] MEDS: ACETAMINOPHEN TAB 325 MG TAB PO PRN (01:31)
[2021-11-12] MEDS ORDERED: PANTOPRAZOLE SODIUM 40 MG GRANULE PKT PO SCH (07:30)
[2021-11-12 08:01] LABS: Basophils % (A) 1 %; Eosinophils % (A) 0 %; HCT 34.1 % (39.0-53.0); HGB 11.6 gm/dL (13.0-17.5); Lymphocytes # (A) 1.1 k/uL (1.0-4.8); Lymphocytes % (A) 20 %; MCH 33.2 pg (25.0-35.0); MCV 97.5 fL (80.0-100.0); Mean Platelet Volume 9.1; Monocytes # (A) 0.4 k/uL (0-1.0); Monocytes % (A) 8 %; Neutrophils # (A) 3.9 k/uL (1.3-7.7); Neutrophils % (A) 69 %; RDW 13.5 % (11.5-15.5); WBC 5.7 k/uL (3.8-10.6)
[2021-11-12 08:02] LABS: Platelet Count 93 k/uL (150-450)
[2021-11-12 08:03] LABS: Albumin 2.9 g/dL (3.5-5.0); Calcium 7.9 mg/dL (8.4-10.2); Potassium 3.6 mmol/L (3.5-5.1); Total Bilirubin 0.6 mg/dL (0.2-1.3); Total Protein 5.5 g/dL (6.3-8.2)
[2021-11-12] MEDS: HEPARIN SODIUM,PORCINE/PF 5,000 UNIT/0.5 ML SYRINGE SQ SCH (09:55)
[2021-11-12] MEDS: ASPIRIN 81 MG PO SCH (09:55)
[2021-11-12] MEDS: MEMANTINE 10 MG TAB PO SCH (09:55)
[2021-11-12] MEDS: METOPROLOL TARTRATE 50 MG TAB PO SCH (09:55)
[2021-11-12] MEDS: lisinopriL 5 MG TAB PO SCH (09:55)
[2021-11-12 10:21] VITALS: BP 166/72; PULSE 76; TEMP 98.3
--- NOTE | 2021-11-12 11:54 | P.PN ---
Subjective Progress Note Date: 11/12/21 Principal diagnosis: Acute mental status changes From HPI: 86-year-old male past history of dementia, Parkinson's presents emergency Department with altered mental status. states the patient has been in bed all day long. She attempted to wake him up this evening and felt t hat he had a right-sided facial droop. EMS was called to the house. They did find that he had a high fever of 102. He has had a mild cough however no other symptoms of infection. No sick contacts with similar symptoms. Family was unaware that the patient had a fever. No shortness of breath. Patient denies headaches or visual changes. No nausea or vomiting. Denies abdominal pain. No changes in his bowel or bladder habits. Admits to some nausea with decreased oral intake. Patient is vaccinated and boosted against Covid. He denies any rashes. No previous history of stroke. Upon hospital arrival the facial droop has resolved. There is no reported weakness in the arms or legs. Patient does remain confused. No other alleviating, precipitating or modifying factors 11/12/2021 patient resting comfortably in bed at this time, is pleasantly confused to time and place. Patient has baseline with dementia. Denies any shortness of breath, difficulty breathing, chest pain/pressure, nausea, vomiting or diarrhea. Patient states that he would like to go home today. Vital signs of been stable although he did have a noted elevated blood pressure earlier smaller morning and subsequently received his morning antihypertensive medications. Objective - Vital Signs Vital signs: Vital Signs Temp 98.3 F 11/12/21 08:00 Pulse 76 11/12/21 08:00 Resp 18 11/12/21 08:00 BP 166/72 11/12/21 08:00 Pulse Ox 96 11/12/21 08:00 Intake & Output 11/11/21 11/12/21 11/12/21 18:59 06:59 18:59 Intake Total 240 118 Output Total 300 200 Balance -60 -200 118 Intake: Oral 240 118 Output: Urine 300 200 Other: Voiding Method Urinal Diaper - Exam GENERAL: Well-appearing, well-nourished and in no acute distress. Easily arousable, oriented to name and place HEAD: Atraumatic, normocephalic. EYES: Pupils equal round and reactive to light, extraocular movements intact, sclera anicteric, conjunctiva are normal. ENT:nares patent, oropharynx clear without exudates. Moist mucous membranes. NECK: Normal range of motion, supple without lymphadenopathy or JVD, no thyromegaly LUNGS: Breath sounds clear to auscultation bilaterally and equal. No wheezes rales or rhonchi. HEART: Regular rate and rhythm without murmurs, rubs or gallops.S1S2 Normal ABDOMEN: Soft, nontender, normoactive bowel sounds. No guarding, no rebound. No masses appreciated. EXTREMITIES: Normal range of motion, no pitting or edema. No clubbing or cyanosis. NEUROLOGICAL: Cranial nerves II through XII grossly intact. Speech slow PSYCH: Normal mood, normal affect. SKIN: Warm, Dry, normal turgor, no rashes or lesions noted. - Labs CBC & Chem 7: 11/12/21 06:42 11/12/21 06:42 Labs: Abnormal Lab Results - Last 24 Hours (Table) 11/12/21 11/12/21 Range/Units 06:42 06:42 RBC 3.50 L (4.30-5.90) m/uL Hgb 11.6 L (13.0-17.5) gm/dL Hct 34.1 L (39.0-53.0) % Plt Count 93 L (150-450) k/uL Chloride 108 H (98-107) mmol/L Carbon Dioxide 21 L (22-30) mmol/L Calcium 7.9 L (8.4-10.2) mg/dL Total Protein 5.5 L (6.3-8.2) g/dL Albumin 2.9 L (3.5-5.0) g/dL Microbiology - Last 24 Hours (Table) 11/10/21 19:45 Blood Culture - Preliminary Blood No Growth after 24 hours 11/10/21 19:30 Blood Culture - Preliminary Blood No Growth after 24 hours Assessment and Plan (1) COVID-19 virus infection Current Visit: Yes Status: Acute Code(s): U07.1 - COVID-19 SNOMED Code(s): 303975248 (2) Acute encephalopathy Current Visit: Yes Status: Acute Code(s): G93.40 - ENCEPHALOPATHY, UNSPECIFIED SNOMED Code(s): 56270002 (3) History of dementia Current Visit: Yes Status: Acute Code(s): Z86.59 - PERSONAL HISTORY OF OTHER MENTAL AND BEHAVIORAL DISORDERS SNOMED Code(s): 810141049 (4) Leukocytosis Current Visit: Yes Status: Acute Code(s): D72.829 - ELEVATED WHITE BLOOD CELL COUNT, UNSPECIFIED SNOMED Code(s): 484021876 (5) Abnormal urine Current Visit: Yes Status: Acute Code(s): R82.90 - UNSPECIFIED ABNORMAL FINDINGS IN URINE SNOMED Code(s): 598765453 (6) History of coronary artery bypass graft Current Visit: Yes Status: Acute Code(s): Z95.1 - PRESENCE OF AORTOCORONARY BYPASS GRAFT SNOMED Code(s): 641245719 (7) Pyrexia Current Visit: Yes Status: Acute Code(s): R50.9 - FEVER, UNSPECIFIED SNOMED Code(s): 757904495 (8) Transient cerebral ischemia Current Visit: Yes Status: Acute Code(s): G45.9 - TRANSIENT CEREBRAL ISCHEM IC ATTACK, UNSPECIFIED SNOMED Code(s): 875587839 Plan: We'll plan to discharge home today. Called and spoke with both his daughter and his and they are in agreement with The plan. We will follow up in the office he had a total visit in 2-3 days. Time with Patient: Greater than 30
--- NOTE | 2021-11-12 12:03 | P.DS ---
Providers Date of admission: 11/10/21 21:44 Expected date of discharge: 11/12/21 Attending physician: Pete Carlson Consults: 11/10/21 21:45 Consult Physician Urgent Consulting Provider: Ren Sapp Consult Reason/Comments: right facial droop, possible tia Do you want consulting provider notified?: Yes Primary care physician: Pete Carlson - Discharge Diagnosis(es) (1) COVID-19 virus infection Current Visit: Yes Status: Acute (2) Acute encephalopathy Current Visit: Yes Status: Acute (3) History of dementia Current Visit: Yes Status: Acute (4) Leukocytosis Current Visit: Yes Status: Acute (5) Abnormal urine Current Visit: Yes Status: Acute (6) History of coronary artery bypass graft Current Visit: Yes Status: Acute (7) Pyrexia Current Visit: Yes Status: Acute (8) Transient cerebral ischemia Current Visit: Yes Status: Acute Hospital Course: From [facility]; 86-year-old male patient presented emergency room via EMS on 11/10/2021 with complaints of altered mental status. Patient's stated that he had been in bed all day long and when she attempted to wake him up she believed him to have a right-sided facial droop. On sent temperature from EMS was 102 and had a mild cough. On arrival to the emergency room facial droop had resolved and patient has no history of stroke or TIA. Patient had no recent travels pulse out of state or country and no known contact with individuals that were sick. Patient had denied vomiting, diarrhea, shortness of breath, headaches, or visual changes. Patient has a past medical history of Parkinson's, dementia, coronary bypass, and hypertension. In the emergency room patient was treated with Rocephin for occasional bacteria in urinalysis. He did receive interbody fusion for a positive Covid test. Chest x-ray resulted no active cardiopulmonary process and CT of the brain demonstrated cerebral atrophy with no acute process. Initial set of vitals blood pressure 115/67, pulse rate is 61, esterase 16, O2 saturation 96% on room air. Initial blood work revealed WBC count 5.4, hemoglobin 12.5, hematocrit 30.9, platelet count of 98. Chemistry revealed a sodium of 140, potassium 3.8, albumin of 18, creatinine 1.1 with a glucose of 108. Again he did test positive for Covid and his urine did have trace leukocytes and occasional bacteria. Neurology consult completed on 11/11/2021 which please symptoms were secondary to current infection in a TIA stroke workup was not necessary. Patient does have underlying dementia 11/12/2021 patient resting comfortably in bed no complaints at this time is able to state self and place but unable to give correct time of 13 year. Did have conversation with his daughter and his and they are in agreement with discharge home today. Patient will make a follow-up visit with the office for 2-3 days via telemedicine visit. Patient Condition at Discharge: Stable Plan - Discharge Summary Discharge Rx Participant: No New Discharge Prescriptions: Continue lisinopriL [Zestril] 5 mg PO DAILY Latanoprost [Xalatan 0.005%] 1 drop BOTH EYES HS QUEtiapine [SEROquel] 25 mg PO HS Metoprolol Tartrate [Lopressor] 50 mg PO BID-W/MEALS Memantine [Namenda] 10 mg PO BID [place]-3 Fatty Acids/Fish Oil [Fish Oil 1,000 mg Softgel] 1 cap PO DAILY Aspirin EC [Ecotrin Low Dose] 81 mg PO DAILY ALPRAZolam [Xanax] 0.25 mg PO Q6H PRN PRN Reason: Anxiety Discharge Medication List ALPRAZolam [Xanax] 0.25 mg PO Q6H PRN 11/10/21 [History] Aspirin EC [Ecotrin Low Dose] 81 mg PO DAILY 11/10/21 [History] Latanoprost [Xalatan 0.005%] 1 drop BOTH EYES HS 11/10/21 [History] Memantine [Namenda] 10 mg PO BID 11/10/21 [History] Metoprolol Tartrate [Lopressor] 50 mg PO BID-W/MEALS 11/10/21 [History] [place]-3 Fatty Acids/Fish Oil [Fish Oil 1,000 mg Softgel] 1 cap PO DAILY 11/10/21 [History] QUEtiapine [SEROquel] 25 mg PO HS 11/10/21 [History] lisinopriL [Zestril] 5 mg PO DAILY 11/10/21 [History] Discharge Disposition: HOME SELF-CARE
== END 2021-11-12 13:52 | disposition home or self-care (01) ==
LOC: EC 18:28 → 3SCARD 21:44
PROVIDERS: ADMIT Family Medicine; ATTEND Family Medicine
DX: U07.1 COVID-19 (principal); G92.9 Unspecified toxic encephalopathy; F02.80 Dementia in other diseases classified elsewhere, unspecified severity, without behavioral disturbance, psychotic disturbance, mood disturbance, and anxiety; Z95.1 Presence of aortocoronary bypass graft; N39.0 Urinary tract infection, site not specified; G45.9 Transient cerebral ischemic attack, unspecified; R05.9 Cough, unspecified; I10 Essential (primary) hypertension; G20 Parkinson's disease; R11.0 Nausea; R29.810 Facial weakness; R53.1 Weakness; Z79.82 Long term (current) use of aspirin; Z79.899 Other long term (current) drug therapy; Z74.01 Bed confinement status
CPT/HCPCS: 96372 ×2; 96374; 99285; 36415; 94760; 93005; 80053 ×2; 80048; 83605; 83690; 84484; 85025 ×3; 85610; 85730; 81001; 87040; 87502; 87635; 71046; 70450; G0378 ×3; M0222; J0696; J1644 ×2; Q0222

== ENCOUNTER 2022-05-31 07:16 | Inpatient (IN) | payer MEDICARE, BC ==
[2022-05-31 08:12] LABS: Partial Thromboplastin Time 26.3 sec (22.0-30.0); Prothrombin Time 10.8 sec (9.0-12.0)
[2022-05-31 08:22] LABS: Albumin 4.2 g/dL (3.5-5.0); Calcium 8.9 mg/dL (8.4-10.2); Magnesium 2.1 mg/dL (1.6-2.3); Total Bilirubin 0.8 mg/dL (0.2-1.3); Total Protein 6.8 g/dL (6.3-8.2)
[2022-05-31 08:26] LABS: Basophils % (A) 1 %; Eosinophils # (A) 0.2 k/uL (0-0.7); Eosinophils % (A) 2 %; HCT 35.7 % (39.0-53.0); HGB 12.4 gm/dL (13.0-17.5); Lymphocytes # (A) 1.7 k/uL (1.0-4.8); Lymphocytes % (A) 24 %; MCH 33.2 pg (25.0-35.0); MCHC 34.6 g/dL (31.0-37.0); MCV 95.8 fL (80.0-100.0); Mean Platelet Volume 9.7; Monocytes # (A) 0.6 k/uL (0-1.0); Monocytes % (A) 9 %; Neutrophils # (A) 4.3 k/uL (1.3-7.7); Neutrophils % (A) 60 %; Platelet Count 123 k/uL (150-450); RBC 3.72 m/uL (4.30-5.90); RDW 13.3 % (11.5-15.5); WBC 7.1 k/uL (3.8-10.6)
--- NOTE | 2022-05-31 08:26 | XR ---
EXAMINATION TYPE: XR chest 2V DATE OF EXAM: 05/31/2022 8:13 AM COMPARISON: Chest radiographs from 11/10/2021. TECHNIQUE: XR chest 2V Portable AP radiograph of the chest. CLINICAL INDICATION:Male, 86 years old with history of Weakness; FINDINGS: Lungs/Pleura: There is no evidence of pleural effusion, focal consolidation, or pneumothorax. Chroni c senescent parenchymal changes. Pulmonary vascularity: Unremarkable. Heart/mediastinum: Cardiomediastinal silhouette is unremarkable. Atherosclerotic calcifications are seen in the aorta. Post surgical changes with mediastinal clips. Musculoskeletal: Multiple level degenerative disc disease changes seen throughout the spine. Midline sternotomy wires are noted and stable. IMPRESSION: Chronic changes without evidence for acute process.
--- NOTE | 2022-05-31 08:50 | CT ---
EXAMINATION TYPE: CT brain cspine wo con CT DLP: 1495.7 mGycm, Automated exposure control for dose reduction was used. DATE OF EXAM: 05/31/2022 8:31 AM COMPARISON: CT brain 11/10/2021. CLINICAL INDICATION:Male, 86 years old with history of head injury; Fall with head injury. TECHNIQUE: Brain: Multiple axial CT images of the brain were obtained without IV contrast. Cspine: Axial CT images from the skull base to the inferior aspect of T2 we obtained without intraven ous contrast. Coronal and sagittal reformatted images were also reviewed. FINDINGS: Brain: Extra-axial spaces: No abnormal extra-axial fluid collections. Ventricular system: Dilatation in proportion to cerebral atrophy. Cerebral parenchyma: No acute intraparenchymal hemorrhage or mass effect. The mahoney-white junction is well differentiated. Scattered hypoattenuating areas are seen within the white matter. Mild cerebra l volume loss. Cerebellum: Unremarkable. Mass effect: No evidence of midline shift. Intracranial vasculature: Atherosclerotic calcifications of the intracranial vessels. Soft tissues: Normal. Calvarium/osseous structures: No depressed skull fracture. Paranasal sinuses and mastoid air cells: Clear. Visualized orbits: Bilateral aphakia Cervical spine: Fracture: None. Osseous structures: Multilevel degenerative disc disease changes with endplate spurring and disc oste ophyte complex's. Midline sternotomy wires. Vertebral alignment: Grade 1 anterolisthesis of C3 on C4 and mild retrolisthesis of C5 and C6 which i s likely degenerative. Spinal canal/Neural Foramina: Disc osteophyte complexes at C3-C4, C4-C5, C5-C6, C6-C7 with at least m ild spinal canal stenosis. Facet joint uncovertebral joint arthropathy scattered throughout the cervi pankaj spine with varying degrees of neural foraminal stenosis. Neck soft tissues: Prevertebral soft tissues are within normal limits. Other: The airway is patent. The lung apices are clear. Vascular sclerosis. IMPRESSION: 1. No acute intracranial process. 2. Nonspecific white matter changes, likely secondary to chronic small vessel ischemic disease. 3. No evidence of cervical spine fracture. 4. Moderate multilevel degenerative disc disease.
[2022-05-31 08:58] LABS: Appearance,Urine Clear (Clear); Bilirubin,Urine Negative (Negative); Blood,Urine Trace (Negative); Color,Urine Yellow; Glucose,Urine (UA) Negative (Negative); Hyaline Casts,Urine 7 /lpf (0-2); Ketones,Urine 1+ (Negative); Leukocyte Esterase,Urine Negative (Negative); Mucus,Urine Occasional /hpf; Nitrite,Urine Negative (Negative); PH, Urine 5.5 (5.0-8.0); Protein,Urine 1+ (Negative); RBC,Urine 2 /hpf (0-5); Specific Gravity,Urine 1.027 (1.001-1.035); Squamous Epithelial Cell,Urine <1 /hpf (0-4); Urobilinogen,Urine <2.0 mg/dL (<2.0); WBC,Urine 2 /hpf (0-5)
--- NOTE | 2022-05-31 09:06 | ED ---
Weakness HPI - General Chief complaint: Weakness Stated complaint: Weakness Time Seen by Provider: 05/31/22 07:30 Source: patient Mode of arrival: ambulatory Limitations: no limitations - History of Present Illness Initial comments: 86-year-old male with past medical history of Lewy body dementia, coronary artery disease with coronary artery bypass presents to the emergency department with weakness. is at bedside and provides a history. States that the patient does have weakness due to his Lewy body dementia however it has been significant over the past couple of days. She does not feel that the patient is safe at home. He has had multiple falls. He fell one week ago and hit his head however states that it was a slow fall and therefore they never sought medical care. The patient has not been complaining of any headaches or visual changes. No neck pain. He does not take any blood thinners. The patient fell this morning and she was unable to get him off the floor therefore she called EMS. Patient has never been to rehab but feels that he requires it at this time. The patient denies any chest pain or shortness of breath. No abdominal pain. Appetite has been poor. Report see normal bowel and bladder function. No pain in the extremities. No fevers. No other alleviating, precipitating or modifying factors - Related Data Home Medications Medication Instructions Recorded Confirmed Aspirin EC [Ecotrin Low Dose] 81 mg PO DAILY 11/10/21 05/31/22 Latanoprost [Xalatan 0.005%] 1 drop BOTH EYES HS 11/10/21 05/31/22 Memantine [Namenda] 10 mg PO BID 11/10/21 05/31/22 Metoprolol Tartrate [Lopressor] 50 mg PO BID-W/MEALS 11/10/21 05/31/22 [place]-3 Fatty Acids/Fish Oil [Fish 1 cap PO DAILY 11/10/21 05/31/22 Oil 1,000 mg Softgel] lisinopriL [Zestril] 5 mg PO DAILY 11/10/21 05/31/22 QUEtiapine [SEROquel] 50 mg PO HS 05/31/22 05/31/22 Allergies Allergy/AdvReac Type Severity Reaction Status Date / Time No Known Allergies Allergy Verified 05/31/22 11:20 Review of Systems ROS Statement: Those systems with pertinent positive or pertinent negative responses have been documented in the HPI. ROS Other: All systems not noted in ROS Statement are negative. Past Medical History Past Medical History: Dementia History of Any Multi-Drug Resistant Organisms: None Reported Past Surgical History: Coronary Bypass/CABG Past Psychological History: No Psychological Hx Reported Smoking Status: Never smoker Past Alcohol Use History: None Reported Past Drug Use History: None Reported General Exam Limitations: no limitations General appearance: alert, in no apparent distress Head exam: Present: atraumatic, normocephalic, normal inspection Eye exam: Present: normal appearance, PERRL, EOMI. Absent: scleral icterus, conjunctival injection, periorbital swelling ENT exam: Present: normal exam, mucous membranes dry Neck exam: Present: normal inspection. Absent: tenderness, meningismus, lymphadenopathy Respiratory exam: Present: normal lung sounds bilaterally. Absent: respiratory distress, wheezes, rales, rhonchi, stridor Cardiovascular Exam: Present: regular rate, normal rhythm, normal heart sounds. Absent: systolic murmur, diastolic murmur, rubs, gallop, clicks GI/Abdominal exam: Present: soft, normal bowel sounds. Absent: distended, tenderness, guarding, rebound, rigid Extremities exam: Present: normal inspection, full ROM, normal capillary refill. Absent: tenderness, pedal edema, joint swelling, calf tenderness Back exam: Present: normal inspection Neurological exam: Present: alert, CN II-XII intact Psychiatric exam: Present: normal affect, normal mood Skin exam: Present: warm, dry, intact, normal color. Absent: rash Course Vital Signs 05/31/22 05/31/22 07:20 08:40 Temperature 97.1 F L Pulse Rate 72 72 Respiratory 18 18 Rate Blood Pressure 146/106 168/82 O2 Sat by Pulse 100 98 Oximetry EKG Findings - EKG Comments: EKG Findings:: EKG is interpreted by myself. Demonstrates sinus rhythm with a rate of 66. SD interval 187. QRS 98. QTC of 406. ST depression in V3V4. No acute ST segment elevations Procedures - [place] Protocol (Time Out) Nurse: Franki Savage Medical Decision Making - Medical Decision Making Upon arrival patient was placed into room 23. A thorough history and physical exam was performed. IV access is established and laboratory studies are conducted. Patient does have a markedly elevated troponin of 0.186. Head and cervical spine CT is performed as the patient did have a fall with head injury which demonstrates no acute intracranial process. Small vessel ischemic disease. No spinal fracture. Chest x-ray demonstrates chronic changes without evidence for acute process. Results are discussed with the family. Patient will be admitted for rehab needs. We will consult cardiology and neurology. I spoke with Dr. Dimas who agreed to admit the patient. Patient will not be heparinized due to multiple falls with recent head injury. He was given an aspirin. Patient awaiting a bed on the floor - Lab Data Result diagrams: 06/03/22 11:47 06/03/22 11:47 Lab Results 05/31/22 05/31/22 05/31/22 Range/Units 07:52 07:52 07:52 WBC 7.1 (3.8-10.6) k/uL RBC 3.72 L (4.30-5.90) m/uL Hgb 12.4 L (13.0-17.5) gm/dL Hct 35.7 L (39.0-53.0) % MCV 95.8 (80.0-100.0) fL MCH 33.2 (25.0-35.0) pg MCHC 34.6 (31.0-37.0) g/dL RDW 13.3 (11.5-15.5) % Plt Count 123 L (150-450) k/uL MPV 9.7 Neutrophils % 60 % Lymphocytes % 24 % Monocytes % 9 % Eosinophils % 2 % Basophils % 1 % Neutrophils # 4.3 (1.3-7.7) k/uL Lymphocytes # 1.7 (1.0-4.8) k/uL Monocytes # 0.6 (0-1.0) k/uL Eosinophils # 0.2 (0-0.7) k/uL Basophils # 0.0 (0-0.2) k/uL PT 10.8 (9.0-12.0) sec INR 1.0 (<1.2) APTT 26.3 (22.0-30.0) sec Sodium 144 (137-145) mmol/L Potassium 4.0 (3.5-5.1) mmol/L Chloride 112 H (98-107) mmol/L Carbon Dioxide 21 L (22-30) mmol/L Anion Gap 11 mmol/L BUN 41 H (9-20) mg/dL Creatinine 1.34 H (0.66-1.25) mg/dL Est GFR (CKD-EPI)AfAm 56 (>60 ml/min/1.73 sqM) Est GFR (CKD-EPI)NonAf 49 (>60 ml/min/1.73 sqM) Glucose 100 H (74-99) mg/dL Plasma Lactic Acid Dev (0.7-2.0) mmol/L Calcium 8.9 (8.4-10.2) mg/dL Magnesium 2.1 (1.6-2.3) mg/dL Total Bilirubin 0.8 (0.2-1.3) mg/dL AST 42 (17-59) U/L ALT 23 (4-49) U/L Alkaline Phosphatase 75 (38-126) U/L Troponin I (0.000-0.034) ng/mL Total Protein 6.8 (6.3-8.2) g/dL Albumin 4.2 (3.5-5.0) g/dL Urine Color Urine Appearance (Clear) Urine pH (5.0-8.0) Ur Specific [place] (1.001-1.035) Urine Protein (Negative) Urine Glucose (UA) (Negative) Urine Ketones (Negative) Urine Blood (Negative) Urine Nitrite (Negative) Urine Bilirubin (Negative) Urine Urobilinogen (<2.0) mg/dL Ur Leukocyte Esterase (Negative) Urine RBC (0-5) /hpf Urine WBC (0-5) /hpf Ur Squamous Epith Cells (0-4) /hpf Hyaline Casts (0-2) /lpf Urine Mucus (None) /hpf 05/31/22 05/31/22 05/31/22 Range/Units 07:52 07:52 08:39 WBC (3.8-10.6) k/uL RBC (4.30-5.90) m/uL Hgb (13.0-17.5) gm/dL Hct (39.0-53.0) % MCV (80.0-100.0) fL MCH (25.0-35.0) pg MCHC (31.0-37.0) g/dL RDW (11.5-15.5) % Plt Count (150-450) k/uL MPV Neutrophils % % Lymphocytes % % Monocytes % % Eosinophils % % Basophils % % Neutrophils # (1.3-7.7) k/uL Lymphocytes # (1.0-4.8) k/uL Monocytes # (0-1.0) k/uL Eosinophils # (0-0.7) k/uL Basophils # (0-0.2) k/uL PT (9.0-12.0) sec INR (<1.2) APTT (22.0-30.0) sec Sodium (137-145) mmol/L Potassium (3.5-5.1) mmol/L Chloride (98-107) mmol/L Carbon Dioxide (22-30) mmol/L Anion Gap mmol/L BUN (9-20) mg/dL Creatinine (0.66-1.25) mg/dL Est GFR (CKD-EPI)AfAm (>60 ml/min/1.73 sqM) Est GFR (CKD-EPI)NonAf (>60 ml/min/1.73 sqM) Glucose (74-99) mg/dL Plasma Lactic Acid Dev 1.1 (0.7-2.0) mmol/L Calcium (8.4-10.2) mg/dL Magnesium (1.6-2.3) mg/dL Total Bilirubin (0.2-1.3) mg/dL AST (17-59) U/L ALT (4-49) U/L Alkaline Phosphatase (38-126) U/L Troponin I 0.186 H* (0.000-0.034) ng/mL Total Protein (6.3-8.2) g/dL Albumin (3.5-5.0) g/dL Urine Color Yellow Urine Appearance Clear (Clear) Urine pH 5.5 (5.0-8.0) Ur Specific [place] 1.027 (1.001-1.035) Urine Protein 1+ H (Negative) Urine Glucose (UA) Negative (Negative) Urine Ketones 1+ H (Negative) Urine Blood Trace H (Negative) Urine Nitrite Negative (Negative) Urine Bilirubin Negative (Negative) Urine Urobilinogen <2.0 (<2.0) mg/dL Ur Leukocyte Esterase Negative (Negative) Urine RBC 2 (0-5) /hpf Urine WBC 2 (0-5) /hpf Ur Squamous Epith Cells <1 (0-4) /hpf Hyaline Casts 7 H (0-2) /lpf Urine Mucus Occasional H (None) /hpf Disposition Clinical Impression: Lewy body dementia, NSTEMI (non-ST elevated myocardial infarction), Multiple falls, Concussion, History of coronary artery bypass graft Disposition: ADMITTED IP TO THIS HOSP Condition: Serious Is patient prescribed a controlled substance at d/c from ED?: No Time of Disposition: 09:16 Decision to Admit Reason: Admit from EC Decision Date: 05/31/22 Decision Time: 09:16
[2022-05-31] MEDS ORDERED: NALOXONE 0.4 MG/ML 1 ML VIAL IV PRN (09:17)
[2022-05-31] MEDS ORDERED: ASPIRIN 81 MG PO STA (09:18)
--- NOTE | 2022-05-31 11:24 | P.CNNES ---
History of Present Illness Consult date: 05/31/22 Requesting physician: Jess Mcclure Reason for Consult: lewy body dementia, multiple falls History of Present Illness: This is an 86-year-old gentleman with reported history of Lewy body dementia, coronary artery disease status post CABG who presented emergency department because of recurrent falls. Some of the history is obtained from the patient's daughter was at bedside. According to the patient daughter the patient was diagnosed with Lewy body dementia by his local neurologist (Dr. Fraire) who he continue to follow. And that this past Saturday the patient had a fall while working on the yardwork but did not lose consciousness or any jerking of extremities. And is seems the patient is having recurrent falls. And decline of his general condition of unable to feed himself and needs editorial assistant with walk-in since this past Saturday. Prior to that the patient was using a walker but at times he would refuse to use a walker. At his baseline patient is alert oriented 3 and is able to feed himself and use the bathroom on his own. The daughters unsure 1 the patient had the tremors but she thinks the patient initially had dementia going on for 5 years at least then possibly later he had the tremors and she is unsure of the patient was started on S[place] in the past or not. 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 He continues to have resting tremor of bilateral upper extremities and shuffles walk-in and his condition overall has been progressively declining but more drastically since this past Saturday. Seems from a neurologic perspective he is on Seroquel 25 mill grams daily at b edtime, amantadine 10 mg 1 tablet twice a day aspirin 81 mg and Xanax 0.25 mg every 6 hours as needed. Some of the workup during this hospital visit consisted of: Initial vital signs is blood pressure of 146/106, heart rate of 72, respiratory of 18, temperature of 97.1 Fahrenheit oral and pulse ox of her percent room air. CT of the head is reported as no acute intracranial process. Nonspecific white matter changes, likely secondary to chronic small vessel ischemic disease. CT cervical spine was reported as no evidence of cervical spine fracture. Moderate multilevel degenerative disc disease. Platelet count is 123,000. White blood cell is within normal limits Creatinine is 1.34 serum glucose on initial presentation is 100 otherwise a calcium, magnesium AST and ALT is within normal limits Troponin is 0.186 Urine analysis seems negative for urinary tract infection. Review of Systems Review of system: The 12 point system was reviewed and apparent positive and negative per HPI. Past Medical History Past Medical History: Dementia History of Any Multi-Drug Resistant Organisms: None Reported Past Surgical History: Coronary Bypass/CABG Past Psychological History: No Psychological Hx Reported Smoking Status: Never smoker Past Alcohol Use History: None Reported Past Drug Use History: None Reported Medications and Allergies Home Medications Medication Instructions Recorded Confirmed Type ALPRAZolam [Xanax] 0.25 mg PO Q6H PRN 11/10/21 11/10/21 History Aspirin EC [Ecotrin Low Dose] 81 mg PO DAILY 11/10/21 11/10/21 History Latanoprost [Xalatan 0.005%] 1 drop BOTH EYES HS 11/10/21 11/10/21 History Memantine [Namenda] 10 mg PO BID 11/10/21 11/10/21 History Metoprolol Tartrate [Lopressor] 50 mg PO BID-W/MEALS 11/10/21 11/10/21 History [place]-3 Fatty Acids/Fish Oil [Fish 1 cap PO DAILY 11/10/21 11/10/21 History Oil 1,000 mg Softgel] QUEtiapine [SEROquel] 25 mg PO HS 11/10/21 11/10/21 History lisinopriL [Zestril] 5 mg PO DAILY 11/10/21 11/10/21 History Allergies Allergy/AdvReac Type Severity Reaction Status Date / Time No Known Allergies Allergy Verified 05/31/22 11:20 Physical Examination - Vital Signs Vital Signs: Vital Signs Temp Pulse Resp BP Pulse Ox 05/31/22 08:40 72 18 168/82 98 05/31/22 07:20 97.1 F L 72 18 146/106 100 Intake and Output 05/30/22 05/31/22 05/31/22 22:59 06:59 14:59 Other: Weight 74.843 kg GENERAL: The patient is lying in bed and is not in acute distress. CHEST: The heart rate is regular rate rhythm. No murmurs to auscultation. LUNG: Clear to auscultation bilaterally no wheezing noted throughout. Not labored breathing. ABDOMEN/GI: Bowel sounds present in all 4 quadrants. No tenderness to palpation throughout. NEUROLOGICAL: Limited to cooperation. Higher mental function: The patient was sleepy on seeing him but was awakeable to voice. He is oriented to self, he stated he was in the hospital but did not know name. Correctly stated the current month but stated the year is 2020. He was able to name objects (pen, watch, glasses). Patient is following simple commands but is somewhat slow. No aphasia and no neglect. Cranial nerves: The pupils are round, equal and reactive to light. Visual almaraz could assess because of cooperation. Extraocular movement is limited because cooperation but is tracking throughout the room without nystagmus. The facial strength is normal throughout. Has somewhat mask-like face Hearing is moderately decreased bilaterally to hand rub. Tongue is midline and moved [id number] without any difficulty. Has hypophonia. No dysarthria is noted. Shoulder shrug is normal bilaterally. Motor: The strength is limited in assessing indvidual muscle testing because of cooperation but is lifting all extremities above gravity. Has resting tremor of uppers and seems moderate to severe in severity. Normal bulk. Cerebellum: Unable to assess. Sensation: Unable to assess light touch. Reflexes (right/left):2-3+ brachioradialis and biceps but triceps are 2+. Patellar are 2+ while ankles are 1+ bilaterally. Plantars are mute bilaterally. Results - Laboratory Findings CBC and BMP: 05/31/22 07:52 05/31/22 07:52 Abnormal Lab Findings: Abnormal Labs 05/31/22 05/31/22 05/31/22 07:52 07:52 07:52 RBC 3.72 L Hgb 12.4 L Hct 35.7 L Plt Count 123 L Chloride 112 H Carbon Dioxide 21 L BUN 41 H Creatinine 1.34 H Glucose 100 H Troponin I 0.186 H* Urine Protein Urine Ketones Urine Blood Hyaline Casts Urine Mucus 05/31/22 08:39 RBC Hgb Hct Plt Count Chloride Carbon Dioxide BUN Creatinine Glucose Troponin I Urine Protein 1+ H Urine Ketones 1+ H Urine Blood Trace H Hyaline Casts 7 H Urine Mucus Occasional H Assessment and Plan Assessment: Recurrent falls due to his reported diagnosis of Lewy body dementia for the past one week Reported history of Lewy body dementia by his neurologist Slightly elevated troponin Acute kidney insuffiency likely due to dehydration Thrombocytopenia History of CAD s/p CABG Plan: I notified the daughter to speak with the patient's regarding if the patient was tried on carbidopa levodopa in the past to assess if there is any improvement in sitting tremors and gait. He was diagnosed with lower body dementia and I'm not sure if he truly has Lewy body versus advanced Parkinson's disease. Will try to obtain history from . According to the daughter he has REM behavior disorder and I will start him on melatonin 3mg qhs. I highly recommend at sleep study as an outpatient I ordered orthostatic vital signs I also ordered TSH, vitamin B-12, folate. Physical therapy and occupation therapy is a consulted Patient had a recent MRI of the brain on 10/30/2021 in our facility and is reported as age-related atrophy and probable chronic small vessel ischemia. There is motion on that exam. I'll hold off on getting a repeat MRI for now. If patient has any further episodes of confusion I will order a routine EEG to rule out any seizures or discharges Cardiology is consulted for elevated troponin We'll defer the rest of the medical metastatic to the primary team Upon discharge the patient needs to follow-up with his neurologist as an outp atient (Dr. Fraire) within 1-2 weeks. The plan was discussed with the patient and his daughter was at bedside. Thank you for the consultation Time with Patient: Greater than 30
--- NOTE | 2022-05-31 12:55 | P.CRDCN ---
History of Present Illness History of present illness: HISTORY OF PRESENT ILLNESS: This is a 86-year-old male with a past medical history significant for coronary artery disease with previous CABG and stenting, hypertension, hyperlipidemia, and Lewy body dementia. Patient used to follow with Dr. Blum. We have bee n asked to see the patient in consultation for abnormal troponins. Patient examined at the bedside. Daughter present. Patient was brought to the hospital secondary to recurrent falls and weakness. No complaints of chest pain or SOB. Blood pressure slightly elevated at time of examination. Most recent reading 168/82. * EKG reveals sinus mechanism with ST depression in V2V4 * Chest xray chronic changes without evidence for acute process * Laboratory data: WBC 7.1. Hemoglobin 12.4. Platelet count 123. Sodium 144. Potassium 4.0. BUN 41. Creatinine 1.34. Troponin 0.186. * Current home cardiac medications include metoprolol tartrate 50 mg twice a day, aspirin 81 mg daily, and lisinopril 5 mg daily * Most recent echocardiogram obtained in November 2021 in the office revealed ejection fraction 55%, [id number] mitral regurgitation, mild tricuspid regurgitation REVIEW OF SYSTEMS: At the time of my exam: Unable to obtain thorough review of systems secondary to mental status PHYSICAL EXAM: VITAL SIGNS: Reviewed. GENERAL: Well-developed in no acute distress. HEENT: Head is normocephalic. Pupils are equal, round. Sclerae anicteric. Mucous membranes of the mouth are moist. Neck supple. No JVD or thyromegaly LUNGS: Respirations even and unlabored. Lungs essentially clear to auscultation bilaterally. HEART: Regular rate and rhythm. S1 and S2 heard. + systolic murmur. ABDOMEN: Soft. Nondistended. Nontender. EXTREMITIES: Normal range of motion. No clubbing or cyanosis. Peripheral pulses intact. No lower extremity edema NEUROLOGIC: Lethargic ASSESSMENT: Recurrent falls Generalized weakness Abnormal troponin, do not suspect ACS Coronary artery disease with previous 4V CABG in 2002 and previous stenting of the RCA, 1282-3901 Hypertension Hyperlipidemia Lewy body dementia PLAN: Continue to trend troponins Continue home cardiac medications Obtain 2D echo to assess cardiac structure and function Neurology following Further recommendations pending patient course Nurse practitioner note has been reviewed by physician. Signing provider agrees with the documented findings, assessment, and plan of care. Past Medical History Past Medical History: Dementia History of Any Multi-Drug Resistant Organisms: None Reported Past Surgical History: Coronary Bypass/CABG Past Psychological History: No Psychological Hx Reported Smoking Status: Never smoker Past Alcohol Use History: None Reported Past Drug Use History: None Reported Medications and Allergies Home Medications Medication Instructions Recorded Confirmed Type Aspirin EC [Ecotrin Low Dose] 81 mg PO DAILY 11/10/21 05/31/22 History Latanoprost [Xalatan 0.005%] 1 drop BOTH EYES HS 11/10/21 05/31/22 History Memantine [Namenda] 10 mg PO BID 11/10/21 05/31/22 History Metoprolol Tartrate [Lopressor] 50 mg PO BID-W/MEALS 11/10/21 05/31/22 History [place]-3 Fatty Acids/Fish Oil [Fish 1 cap PO DAILY 11/10/21 05/31/22 History Oil 1,000 mg Softgel] lisinopriL [Zestril] 5 mg PO DAILY 11/10/21 05/31/22 History QUEtiapine [SEROquel] 50 mg PO HS 05/31/22 05/31/22 History Allergies Allergy/AdvReac Type Severity Reaction Status Date / Time No Known Allergies Allergy Verified 05/31/22 11:20 Physical Exam Vitals: Vital Signs Temp Pulse Resp BP Pulse Ox 05/31/22 08:40 72 18 168/82 98 05/31/22 07:20 97.1 F L 72 18 146/106 100 Intake and Output 05/30/22 05/31/22 05/31/22 22:59 06:59 14:59 Other: Weight 74.843 kg Results 05/31/22 07:52 05/31/22 07:52 Cardiac Enzymes 05/31/22 05/31/22 Range/Units 07:52 07:52 AST 42 (17-59) U/L Troponin I 0.186 H* (0.000-0.034) ng/mL Coagulation 05/31/22 Range/Units 07:52 PT 10.8 (9.0-12.0) sec APTT 26.3 (22.0-30.0) sec CBC 05/31/22 Range/Units 07:52 WBC 7.1 (3.8-10.6) k/uL RBC 3.72 L (4.30-5.90) m/uL Hgb 12.4 L (13.0-17.5) gm/dL Hct 35.7 L (39.0-53.0) % Plt Count 123 L (150-450) k/uL Comprehensive Metabolic Panel 05/31/22 Range/Units 07:52 Sodium 144 (137-145) mmol/L Potassium 4.0 (3.5-5.1) mmol/L Chloride 112 H (98-107) mmol/L Carbon Dioxide 21 L (22-30) mmol/L BUN 41 H (9-20) mg/dL Creatinine 1.34 H (0.66-1.25) mg/dL Glucose 100 H (74-99) mg/dL Calcium 8.9 (8.4-10.2) mg/dL AST 42 (17-59) U/L ALT 23 (4-49) U/L Alkaline Phosphatase 75 (38-126) U/L Total Protein 6.8 (6.3-8.2) g/dL Albumin 4.2 (3.5-5.0) g/dL Current Medications Generic Name Dose Route Start Last Admin Trade Name Freq PRN Reason Stop Dose Admin Heparin Sodium (Porcine) 5,000 unit 05/31/22 16:00 Heparin Sodium,Porcine/Pf 5,000 Unit/0.5 Ml Syringe SQ Q8HR ONESIMO Melatonin 3 mg 05/31/22 21:00 Melatonin 3 Mg Tablet PO HS ONESIMO Naloxone HCl 0.2 mg 05/31/22 09:17 Naloxone 0.4 Mg/Ml 1 Ml Vial IV Q2M PRN Opioid Reversal Intake and Output 05/30/22 05/31/22 05/31/22 22:59 06:59 14:59 Other: Weight 74.843 kg Patient Weight 06/01/22 06:59 Weight 74.843 kg 05/31/22 07:52 05/31/22 07:52
--- NOTE | 2022-05-31 15:07 | P.HPIM ---
History of Present Illness H&P Date: 05/31/22 Chief Complaint: Increased weakness, multiple falls This is an 86-year-old gentleman with past medical history of Lewey body dementia, no Parkinson disease diagnosis as per daughter, CAD, CABG, stenting, hypertension, hyperlipidemia and multiple other medical issues presented to the ER with increased weakness, recurrent falls, family unable to continue taking care of patient-agreeable to placement. Family reports no aggression. Patient denies nausea vomiting or diarrhea. Denies abdominal pain. . Patient lives in a trilevel house with his elderly and has had increased falls over the last week and she is physically unable to help him up. Hypertensive, systolic blood pressure to 168/82. Denies chest pain palpitations or shortness of breath. Troponins 0.186, 0.184 .Chest x-ray reported no acute process. CT of brain ,C- spine reported no acute intracranial process, nonspecific white matter changes likely secondary to chronic small vessel ischemic disease, no evidence of cervical spine fracture, moderate multilevel degenerative disc disease. Afebrile, normal WBC, hemoglobin 12.4, platelets 123, INR 1, sodium 144, bicarb 21, BUN 41, creatinine 1.34, glucose 100, lactic acid 1.1, magnesium 2.1, UA negative. Review of Systems ROS limited ,Completed with assistance of Daughter at bedside: ROS Statement: Those systems with pertinent positive or pertinent negative responses have been documented in the HPI. ROS Other: All systems not noted in ROS Statement are negative. Past Medical History Past Medical History: Dementia History of Any Multi-Drug Resistant Organisms: None Reported Past Surgical History: Coronary Bypass/CABG Past Psychological History: No Psychological Hx Reported Smoking Status: Never smoker Past Alcohol Use History: None Reported Past Drug Use History: None Reported Medications and Allergies Home Medications Medication Instructions Recorded Confirmed Type Aspirin EC [Ecotrin Low Dose] 81 mg PO DAILY 11/10/21 05/31/22 History Latanoprost [Xalatan 0.005%] 1 drop BOTH EYES HS 11/10/21 05/31/22 History Memantine [Namenda] 10 mg PO BID 11/10/21 05/31/22 History Metoprolol Tartrate [Lopressor] 50 mg PO BID-W/MEALS 11/10/21 05/31/22 History [place]-3 Fatty Acids/Fish Oil [Fish 1 cap PO DAILY 11/10/21 05/31/22 History Oil 1,000 mg Softgel] lisinopriL [Zestril] 5 mg PO DAILY 11/10/21 05/31/22 History QUEtiapine [SEROquel] 50 mg PO HS 05/31/22 05/31/22 History Allergies Allergy/AdvReac Type Severity Reaction Status Date / Time No Known Allergies Allergy Verified 05/31/22 11:20 Physical Exam Vitals: Vital Signs Temp Pulse Resp BP Pulse Ox 05/31/22 08:40 72 18 168/82 98 05/31/22 07:20 97.1 F L 72 18 146/106 100 Intake and Output 05/30/22 05/31/22 05/31/22 22:59 06:59 14:59 Other: Weight 74.843 kg PHYSICAL EXAM: VITAL SIGNS: [As above] GENERAL: Sitting up on stretcher, no acute distress, teary-eyed at times HEENT: Conjunctivae normal. eyes normal. NECK: Supple, No JVD. No thyroid enlargement. No LNs CARDIOVASCULAR: S1, S2 regular. Systolic murmur RESPIRATION: Breath sounds diminished in the bases. No rhonchi or crackles. No bronchial breathing. ABDOMEN: Soft, nontender . No guarding. no masses palpable. No ascites, No hepatosplenomegaly.Bowel sounds heard. LEGS: No edema. no swelling PSYCHIATRY: Alert and oriented X2, pleasantly confused, cooperative NERVOUS SYSTEM: Limited exam lethargic, mild tremors Results CBC & Chem 7: 05/31/22 07:52 05/31/22 07:52 Labs: Abnormal Lab Results - Last 24 Hours (Table) 05/31/22 05/31/22 05/31/22 Range/Units 07:52 07:52 07:52 RBC 3.72 L (4.30-5.90) m/uL Hgb 12.4 L (13.0-17.5) gm/dL Hct 35.7 L (39.0-53.0) % Plt Count 123 L (150-450) k/uL Chloride 112 H (98-107) mmol/L Carbon Dioxide 21 L (22-30) mmol/L BUN 41 H (9-20) mg/dL Creatinine 1.34 H (0.66-1.25) mg/dL Glucose 100 H (74-99) mg/dL Troponin I 0.186 H* (0.000-0.034) ng/mL Urine Protein (Negative) Urine Ketones (Negative) Urine Blood (Negative) Hyaline Casts (0-2) /lpf Urine Mucus (None) /hpf 05/31/22 05/31/22 Range/Units 08:39 11:38 RBC (4.30-5.90) m/uL Hgb (13.0-17.5) gm/dL Hct (39.0-53.0) % Plt Count (150-450) k/uL Chloride (98-107) mmol/L Carbon Dioxide (22-30) mmol/L BUN (9-20) mg/dL Creatinine (0.66-1.25) mg/dL Glucose (74-99) mg/dL Troponin I 0.184 H* (0.000-0.034) ng/mL Urine Protein 1+ H (Negative) Urine Ketones 1+ H (Negative) Urine Blood Trace H (Negative) Hyaline Casts 7 H (0-2) /lpf Urine Mucus Occasional H (None) /hpf Assessment and Plan Assessment: Arianne body dementia, follows with Dr. Fraire Generalized weakness -worsening with recurrent falls over the last week Elevated troponins, ACS not suspected as per cardiology Dehydration Acute renal insufficiency secondary to the above Thrombocytopenia CAD, history of CABG, stenting Hypertension Hyperlipidemia Plan: Continue on current medication regime ,monitoring and symptomatic treatment. Cardiology and neurology consults in place, recommendations noted and appreciated. Echo, orthostatic vital signs pending. PT/OT,social work consulted for placement. Prognosis guarded given multiple complex medical issues. Plan a care discussed at bedside with patient and daughter-verbalized agreement with. Maintain supportive care. The impression and plan of care has been dictated as directed. : I performed a history and examination of this patient, discussed the same with the dictator. I agree with the dictator's note ,documented as a scribe. Any additional findings or plans will be noted.
[2022-05-31] MEDS: HEPARIN SODIUM,PORCINE/PF 5,000 UNIT/0.5 ML SYRINGE SQ SCH ×2 (18:05→20:44)
--- NOTE | 2022-05-31 18:26 | CA ---
Transthoracic Echo Report Name: Rodrigo Aguilera Age: 86 Gender: M : 1935 Exam Date: 05/31/2022 13:25 Exam Location: [facility] Ht (in): 60 Wt (lb): 165 Ordering Physician: Skylar Ruff Attending/Referring Phys: [id number], [employer] Paraprofessional Padma Carrera, CYNTHIA Procedure CPT: Indications: LV function Cardiac Hx: Technical Quality: Good Contrast 1: Total Dose (mL): Contrast 2: Total Dose (mL): MEASUREMENTS (Male / Female) Normal Values 2D ECHO LV Diastolic Diameter PLAX 5.2 cm 4.2 - 5.9 / 3.9 - 5.3 cm LV Systolic Diameter PLAX 3.4 cm IVS Diastolic Thickness 0.8 cm 0.6 - 1.0 / 0.6 - 0.9 cm LVPW Diastolic Thickness 1.1 cm 0.6 - 1.0 / 0.6 - 0.9 cm LV Relative Wall Thickness 0.4 RV Internal Dim ED PLAX 2.4 cm LA Systolic Diameter LX 4.5 cm 3.0 - 4.0 / 2.7 - 3.8 cm LA Volume 94.5 cm??? 18 - 58 / 22 - 52 cm??? M-MODE Aortic Root Diameter MM 3.2 cm LA Systolic Diameter MM 4.0 cm LA Ao Ratio MM 1.2 MV E Point Septal Separation 0.8 cm AV Cusp Separation MM 1.4 cm DOPPLER AV Peak Velocity 130.3 cm/s AV Peak Gradient 6.8 mmHg MV Area PHT 3.7 cm??? Mitral E Point Velocity 47.5 cm/s Mitral A Point Velocity 74.3 cm/s Mitral E to A Ratio 0.6 MV Deceleration Time 204.3 ms MV E' Velocity 7.0 cm/s Mitral E to MV E' Ratio 6.8 FINDINGS Left Ventricle Left ventricular ejection fraction is estimated at 50-55 %.left ventricular cavity size normal. Right Ventricle Normal right ventricular size and function. Right Atrium Normal right atrial size. Left Atrium Mildly increased left atrial diameter. Severely increased left atrial volume. Mildly increased left atrial area. Mitral Valve Mitral valve thickened. Mild to moderate- mitral regurgitation. Aortic Valve Aortic valve sclerosis. Tricuspid Valve Structurally normal tricuspid valve. Mild to moderate tricuspid regurgitation. Pulmonic Valve Pulmonic valve not well visualized. Pericardium Normal pericardium. Aorta Normal size aortic root and proximal ascending aorta. CONCLUSIONS 1. Left ventricle systolic function borderline normal 2. Mild to moderate mitral and tricuspid regurgitation. Previewed by: Dr. Little Elaine MD (Electronically Signed) Final Date: 31 May 2022 18:25
[2022-05-31] MEDS: MELATONIN 3 MG TABLET PO SCH (20:43)
[2022-05-31] MEDS: QUEtiapine 50 MG TAB PO SCH (20:43)
[2022-05-31] MEDS: METOPROLOL TARTRATE 50 MG TAB PO SCH (20:44)
[2022-05-31] MEDS: MEMANTINE 10 MG TAB PO SCH (20:44)
[2022-05-31] MEDS: LATANOPROST 0.005% OPHTH DROPS 2.5 ML BTL BOTH EYES SCH (20:58)
[2022-06-01] MEDS: lisinopriL 5 MG TAB PO SCH (07:52)
[2022-06-01] MEDS: MEMANTINE 10 MG TAB PO SCH ×2 (07:52→20:35)
[2022-06-01] MEDS: METOPROLOL TARTRATE 50 MG TAB PO SCH ×2 (07:52→15:50)
[2022-06-01] MEDS: HEPARIN SODIUM,PORCINE/PF 5,000 UNIT/0.5 ML SYRINGE SQ SCH ×2 (07:52→15:50)
[2022-06-01] MEDS: ASPIRIN 81 MG PO SCH (07:52)
[2022-06-01 08:48] LABS: Basophils % (A) 1 %; Eosinophils # (A) 0.2 k/uL (0-0.7); Eosinophils % (A) 4 %; HCT 33.6 % (39.0-53.0); HGB 11.6 gm/dL (13.0-17.5); Lymphocytes # (A) 1.5 k/uL (1.0-4.8); Lymphocytes % (A) 27 %; MCH 33.3 pg (25.0-35.0); MCHC 34.5 g/dL (31.0-37.0); MCV 96.7 fL (80.0-100.0); Mean Platelet Volume 9.2; Monocytes # (A) 0.4 k/uL (0-1.0); Monocytes % (A) 8 %; Neutrophils # (A) 3.3 k/uL (1.3-7.7); Neutrophils % (A) 57 %; Platelet Count 137 k/uL (150-450); RBC 3.48 m/uL (4.30-5.90); RDW 13.4 % (11.5-15.5); WBC 5.7 k/uL (3.8-10.6)
[2022-06-01 08:55] LABS: Calcium 8.6 mg/dL (8.4-10.2); Potassium 4.1 mmol/L (3.5-5.1)
[2022-06-01] MEDS ORDERED: NON FORMULARY DRUG (Omega-3 Fatty Acids/Fish Oil [Fish Oil 1,000 Mg Softgel] 1 EACH Capsul PO SCH (09:00)
[2022-06-01] MEDS: CYANOCOBALAMIN 1,000 MCG/ML 1 ML VIAL IM SCH (09:50)
[2022-06-01] MEDS: FOLIC ACID 1 MG TAB PO SCH (09:50)
--- NOTE | 2022-06-01 11:15 | P.PN ---
Subjective Progress Note Date: 06/01/22 HISTORY OF PRESENT ILLNESS: This is a 86-year-old male with a past medical history significant for coronary artery disease with previous CABG and stenting, hypertension, hyperlipidemia, and Lewy body dementia. Patient used to follow with Dr. Blum. We have been asked to see the patient in consultation for abnormal troponins. Patient examined at the bedside. Daughter present. Patient was brought to the hospital secondary to recurrent falls and weakness. No complaints of chest pain or SOB. Blood pressure slightly elevated at time of examination. Most recent reading 168/82. * EKG reveals sinus mechanism with ST depression in V2V4 * Chest xray chronic changes without evidence for acute process * Laboratory data: WBC 7.1. Hemoglobin 12.4. Platelet count 123. Sodium 144. Potassium 4.0. BUN 41. Creatinine 1.34. Troponin 0.186. * Current home cardiac medications include metoprolol tartrate 50 mg twice a day, aspirin 81 mg daily, and lisinopril 5 mg daily * Most recent echocardiogram obtained in November 2021 in the office revealed ejection fraction 55%, [id number] mitral regurgitation, mild tricuspid regurgitation 06/01/2022 Patient examined this morning at the bedside. Patient appears to be resting comfortably. Troponins all resulted flat at 0.186. 0.184. 0.181. Echocardiogram completed revealing ejection fraction 50-55%, pwkh-od-hxohkejg mitral regurgitation, htgw-vn-eibqjxhn tricuspid regurgitation PHYSICAL EXAM: VITAL SIGNS: Reviewed. GENERAL: Well-developed in no acute distress. HEENT: Head is normocephalic. Pupils are equal, round. Sclerae anicteric. Mucous membranes of the mouth are moist. Neck supple. No JVD or thyromegaly LUNGS: Respirations even and unlabored. Lungs essentially clear to auscultation bilaterally. HEART: Regular rate and rhythm. S1 and S2 heard. + systolic murmur. ABDOMEN: Soft. Nondistended. Nontender. EXTREMITIES: Normal range of motion. No clubbing or cyanosis. Peripheral pulses intact. No lower extremity edema NEUROLOGIC: Lethargic ASSESSMENT: Recurrent falls Generalized weakness Abnormal troponin, acute coronary syndrome ruled out Coronary artery disease with previous 4V CABG in 2002 and previous stenting of the RCA, [id number] Hypertension Hyperlipidemia Lewy body dementia PLAN: ACS ruled out Continue current cardiac medications We will sign off. Please reconsult if needed Nurse practitioner note has been reviewed by physician. Signing provider agrees with the documented findings, assessment, and plan of care. Objective - Vital Signs Vital signs: Vital Signs Temp 98.2 F 06/01/22 07:50 Pulse 66 06/01/22 07:50 Resp 17 06/01/22 07:50 BP 153/64 06/01/22 07:50 Pulse Ox 97 06/01/22 07:50 FiO2 Intake & Output 05/31/22 06/01/22 06/01/22 18:59 06:59 18:59 Intake Total 120 Output Total 100 Balance -100 120 Weight 74.843 kg Intake: Oral 120 Output: Urine 100 Other: Voiding Method Urinal Urinal Urinal Diaper Diaper Diaper Incontinent Incontinent # Voids 1 - Labs CBC & Chem 7: 06/01/22 07:55 06/01/22 07:55 Labs: Abnormal Lab Results - Last 24 Hours (Table) 05/31/22 05/31/22 06/01/22 Range/Units 11:38 15:17 07:55 RBC 3.48 L (4.30-5.90) m/uL Hgb 11.6 L (13.0-17.5) gm/dL Hct 33.6 L (39.0-53.0) % Plt Count 137 L (150-450) k/uL Chloride (98-107) mmol/L BUN (9-20) mg/dL Creatinine (0.66-1.25) mg/dL Troponin I 0.184 H* 0.181 H* (0.000-0.034) ng/mL 06/01/22 Range/Units 07:55 RBC (4.30-5.90) m/uL Hgb (13.0-17.5) gm/dL Hct (39.0-53.0) % Plt Count (150-450) k/uL Chloride 113 H (98-107) mmol/L BUN 37 H (9-20) mg/dL Creatinine 1.27 H (0.66-1.25) mg/dL Troponin I (0.000-0.034) ng/mL
--- NOTE | 2022-06-01 12:35 | P.PN ---
Subjective Progress Note Date: 06/01/22 The patient seen at bedside and he is more awake today compared to yesterday. No family members at bedside. Objective - Vital Signs Vital signs: Vital Signs Temp 98.2 F 06/01/22 07:50 Pulse 66 06/01/22 07:50 Resp 17 06/01/22 07:50 BP 153/64 06/01/22 07:50 Pulse Ox 97 06/01/22 07:50 FiO2 Intake & Output 05/31/22 06/01/22 06/01/22 18:59 06:59 18:59 Intake Total 120 Output Total 100 Balance -100 120 Weight 74.843 kg Intake: Oral 120 Output: Urine 100 Other: Voiding Method Urinal Urinal Urinal Diaper Diaper Diaper Incontinent Incontinent # Voids 1 - Exam GENERAL: The patient is lying in bed and is not in acute distress. NEUROLOGICAL: Higher mental function: The patient is more awake today compared to yesterday. Oriented to self, place and stated the current month but stated the current year is 2019. Patient is following commands. No aphasia and no neglect. Cranial nerves: The pupils are round, equal and reactive to light. Visual almaraz are full to confrontation throughout. Extraocular movement is intact no nystagmus is noted. Facial sensation is normal to touch throughout. The facial strength is normal throughout. Tongue is midline and moved [id number]-gi-wibg without any difficulty. No dysarthria is noted. Has hypophonia. Shoulder shrug is normal bilaterally. Motor: The strength is increase tone in uppers but able to lift above gravity. Has resting tremors bilateral uppers predominately. Normal bulk. Cerebellum: Unable to assess. Sensation: Sensation is normal to touch throughout. Some of the workup during this hospital visit consisted of: Initial vital signs is blood pressure of 146/106, heart rate of 72, respiratory of 18, temperature of 97.1 Fahrenheit oral and pulse ox of her percent room air. CT of the head is reported as no acute intracranial process. Nonspecific white matter changes, likely secondary to chronic small vessel ischemic disease. CT cervical spine was reported as no evidence of cervical spine fracture. Moderate multilevel degenerative disc disease. Platelet count is 123,000. White blood cell is within normal limits Creatinine is 1.34 serum glucose on initial presentation is 100 otherwise a calcium, magnesium AST and ALT is within normal limits Troponin is 0.186 Urine analysis seems negative for urinary tract infection. Vitamin B12 is 202 which she is considered deficient Folate is 8.90 TSH is 0.658 - Labs CBC & Chem 7: 06/01/22 07:55 06/01/22 07:55 Labs: Abnormal Lab Results - Last 24 Hours (Table) 05/31/22 05/31/22 06/01/22 Range/Units 11:38 15:17 07:55 RBC 3.48 L (4.30-5.90) m/uL Hgb 11.6 L (13.0-17.5) gm/dL Hct 33.6 L (39.0-53.0) % Plt Count 137 L (150-450) k/uL Chloride (98-107) mmol/L BUN (9-20) mg/dL Creatinine (0.66-1.25) mg/dL Troponin I 0.184 H* 0.181 H* (0.000-0.034) ng/mL 06/01/22 Range/Units 07:55 RBC (4.30-5.90) m/uL Hgb (13.0-17.5) gm/dL Hct (39.0-53.0) % Plt Count (150-450) k/uL Chloride 113 H (98-107) mmol/L BUN 37 H (9-20) mg/dL Creatinine 1.27 H (0.66-1.25) mg/dL Troponin I (0.000-0.034) ng/mL Assessment and Plan Assessment: Recurrent falls due to his reported diagnosis of Lewy body dementia for the past one week Reported history of Lewy body dementia by his neurologist Vitamin B12 deficiency Slightly elevated troponin Acute kidney insuffiency likely due to dehydration Thrombocytopenia History of CAD s/p CABG Plan: He was diagnosed with lower body dementia and I'm not sure if he truly has Lewy body versus advanced Parkinson's disease. The family notified the nurse that the patient was never tried on Sinement in past. I will try the patient on Sinemet 25-100mg 1 tab to assess in any imp rovement in parkinson's symptoms. For the vitamin B12 deficiency I started the patient on IM thousand micrograms for today and tomorrow then after that by mouth and then I recommend in that 2-3 weeks to check the B12 as an outpatient I started the patient on folic acid 1 mg daily since he had subtle low normal of folate but not deficient According to the daughter he has REM behavior disorder and I will start him on melatonin 3mg qhs. I highly recommend at sleep study as an outpatient Pending orthostatic vital signs Physical therapy and occupation therapy is a consulted Patient had a recent MRI of the brain on 10/30/2021 in our facility and is reported as age-related atrophy and probable chronic small vessel ischemia. There is motion on that exam. I'll hold off on getting a repeat MRI for now. If patient has any further episodes of confusion I will order a routine EEG to rule out any seizures or discharges Cardiology is consulted for elevated troponin We'll defer the rest of the medical metastatic to the primary team Upon discharge the patient needs to follow-up with his neurologist as an outpatient (Dr. Fraire) within 1-2 weeks. The plan was discussed with the nurse. Time with Patient: Less than 30
[2022-06-01] MEDS: CARBIDOPA-LEVODOPA 25-100 MG 1 EACH TAB PO SCH ×3 (13:33→20:35)
--- NOTE | 2022-06-01 13:43 | P.PN ---
Subjective Progress Note Date: 06/01/22 05/31/22 This is an 86-year-old gentleman with past medical history of Lewey body dementia, no Parkinson disease diagnosis as per daughter, CAD, CABG, stenting, hypertension, hyperlipidemia and multiple other medical issues presented to the ER with increased weakness, recurrent falls, family unable to continue taking care of patient-agreeable to placement. Family reports no aggression. Patient denies nausea vomiting or diarrhea. Denies abdominal pain. . Patient lives in a trilevel house with his elderly and has had increased falls over the last week and she is physically unable to help him up. Hypertensive, systolic blood pressure to 168/82. Denies chest pain palpitations or shortness of breath. Troponins 0.186, 0.184 .Chest x-ray reported no acute process. CT of brain ,C- spine reported no acute intracranial process, nonspecific white matter changes likely secondary to chronic small vessel ischemic disease, no evidence of cervical spine fracture, moderate multilevel degenerative disc disease. Afebrile, normal WBC, hemoglobin 12.4, platelets 123, INR 1, sodium 144, bicarb 21, BUN 41, creatinine 1.34, glucose 100, lactic acid 1.1, magnesium 2.1, UA negative. June 01, 2022: patient was seen evaluated. His is at bedside. Cardiology and neurology notes review today. He was admitted with increased weakness and falling. I discuss this with his several days previous to admission. Encouraged her to go to the emergency room to rule out any acute infections. We discussed that this may be just worsening of his dementia.Today nursing reports some paranoia with feeding.Vitals are stable.Patients awake alert in oriented times zero at this point. He's very confused. Objective - Vital Signs Vital signs: Vital Signs Temp 98.2 F 06/01/22 07:50 Pulse 60 06/01/22 11:25 Resp 18 06/01/22 11:25 BP 132/67 06/01/22 11:25 Pulse Ox 96 06/01/22 11:25 FiO2 Intake & Output 05/31/22 06/01/22 06/01/22 18:59 06:59 18:59 Intake Total 120 Output Total 100 Balance -100 120 Weight 74.843 kg Intake: Oral 120 Output: Urine 100 Other: Voiding Method Urinal Urinal Urinal Diaper Diaper Diaper Incontinent Incontinent # Voids 1 - Exam GENERAL: in bed no acute distress, NECK: Supple, No JVD. No thyroid enlargement. No LNs CARDIOVASCULAR: S1, S2 regular. Systolic murmur RESPIRATION: Breath sounds diminished in the bases. No rhonchi or crackles. No bronchial breathing. ABDOMEN: Soft, nontender . No guarding. no masses palpable. No ascites, No hepatosplenomegaly. Bowel sounds heard. LEGS: No edema. no swelling PSYCHIATRY: Alert and oriented X1, pleasantly confused, cooperative NERVOUS SYSTEM: Limited exam lethargic, mild tremors - Labs CBC & Chem 7: 06/01/22 07:55 06/01/22 07:55 Labs: Abnormal Lab Results - Last 24 Hours (Table) 05/31/22 06/01/22 06/01/22 Range/Units 15:17 07:55 07:55 RBC 3.48 L (4.30-5.90) m/uL Hgb 11.6 L (13.0-17.5) gm/dL Hct 33.6 L (39.0-53.0) % Plt Count 137 L (150-450) k/uL Chloride 113 H (98-107) mmol/L BUN 37 H (9-20) mg/dL Creatinine 1.27 H (0.66-1.25) mg/dL Troponin I 0.181 H* (0.000-0.034) ng/mL Assessment and Plan (1) Dehydration Current Visit: Yes Status: Acute Code(s): E86.0 - DEHYDRATION SNOMED Code(s): 33559616 (2) Acute renal failure (ARF) Current Visit: Yes Status: Acute Code(s): N17.9 - ACUTE KIDNEY FAILURE, UNSPECIFIED SNOMED Code(s): 67000671 (3) Essential (primary) hypertension Current Visit: Yes Status: Acute Code(s): I10 - ESSENTIAL (PRIMARY) HYPERTENSION SNOMED Code(s): 68253769 (4) Hyperlipidemia, unspecified Current Visit: Yes Status: Acute Code(s): E78.5 - HYPERLIPIDEMIA, UNSPECIFIED SNOMED Code(s): 37888421 (5) Tremor Current Visit: Yes Status: Acute Code(s): R25.1 - TREMOR, UNSPECIFIED SNOMED Code(s): 25415140 (6) Lewy body dementia Current Visit: Yes Status: Acute Code(s): G31.83 - NEUROCOGNITIVE DISORDER WITH LEWY BODIES; F02.80 - DEM IN OTH DIS CLASSD ELSWHR,UNSP SEV,W/O BEH/PSYCH/MOOD/ANX SNOMED Code(s): 751967670 (7) Multiple falls Current Visit: Yes Status: Acute Code(s): R29.6 - REPEATED FALLS SNOMED Code(s): 257078703 (8) Weakness Current Visit: Yes Status: Acute Code(s): R53.1 - WEAKNESS SNOMED Code(s): 46140024 Plan: Lewey body dementia:Currently worsening, neurology is following, Continue amantadine and Seroquel. tremor:Trial of Sinemet per neurology Generalized weakness -worsening with recurrent falls over the last week:PT/OT evaluate and treat, plan placement Elevated troponins;ACS not suspected as per cardiology, Continue aspirin Dehydration:Resolving it with IV fluid Acute renal insufficiency secondary to the above Thrombocytopenia:Will monitor CAD, history of CABG, stentingCardiology has seen the patient and have no further recommendations. Hypertension: continue lisinopril Hyperlipidemia: no meds at this time Plan: Continue on current medication regime Cardiology and neurology following PT/OT,social work consulted for placement. placement once stable repeat labs in am reevaluate in 24 hrs
[2022-06-01] MEDS ORDERED: SODIUM CHLORIDE 0.9% 1,000 ML IV SCH (13:45)
[2022-06-01 14:05] VITALS: BMI 23.6
[2022-06-01] MEDS: MELATONIN 3 MG TABLET PO SCH (20:35)
[2022-06-01] MEDS: LATANOPROST 0.005% OPHTH DROPS 2.5 ML BTL BOTH EYES SCH (20:35)
[2022-06-01] MEDS: QUEtiapine 50 MG TAB PO SCH (20:35)
[2022-06-02] MEDS: HEPARIN SODIUM,PORCINE/PF 5,000 UNIT/0.5 ML SYRINGE SQ SCH ×3 (05:58→16:22)
[2022-06-02] MEDS: METOPROLOL TARTRATE 50 MG TAB PO SCH ×2 (06:06→16:22)
[2022-06-02 06:07] LABS: Glucose,Whole Blood 93 mg/dL (70-110)
[2022-06-02] MEDS: CYANOCOBALAMIN 1,000 MCG/ML 1 ML VIAL IM SCH (08:23)
[2022-06-02] MEDS: lisinopriL 5 MG TAB PO SCH (08:23)
[2022-06-02] MEDS: CARBIDOPA-LEVODOPA 25-100 MG 1 EACH TAB PO SCH ×3 (08:23→20:28)
[2022-06-02] MEDS: FOLIC ACID 1 MG TAB PO SCH (08:23)
[2022-06-02] MEDS: MEMANTINE 10 MG TAB PO SCH ×2 (08:23→20:28)
[2022-06-02] MEDS: ASPIRIN 81 MG PO SCH (08:23)
[2022-06-02] MEDS ORDERED: MAG HYDROX/AL HYDROX/SIMETH 30 ML CUP PO PRN (08:24)
[2022-06-02] MEDS: PANTOPRAZOLE 40 MG TABLET PO SCH (08:29)
[2022-06-02 10:12] LABS: Calcium 8.7 mg/dL (8.4-10.2)
--- NOTE | 2022-06-02 10:56 | P.PN ---
Subjective 05/31/22 This is an 86-year-old gentleman with past medical history of Lewey body dementia, no Parkinson disease diagnosis as per daughter, CAD, CABG, stenting, hypertension, hyperlipidemia and multiple other medical issues presented to the ER with increased weakness, recurrent falls, family unable to continue taking care of patient-agreeable to placement. Family reports no aggression. Patient denies nausea vomiting or diarrhea. Denies abdominal pain. . Patient lives in a trilevel house with his elderly and has had increased falls over the last week and she is physically unable to help him up. Hypertensive, systolic blood pressure to 168/82. Denies chest pain palpitations or shortness of breath. Troponins 0.186, 0.184 .Chest x-ray reported no acute process. CT of brain ,C- spine reported no acute intracranial process, nonspecific white matter changes likely secondary to chronic small vessel ischemic disease, no evidence of c ervical spine fracture, moderate multilevel degenerative disc disease. Afebrile, normal WBC, hemoglobin 12.4, platelets 123, INR 1, sodium 144, bicarb 21, BUN 41, creatinine 1.34, glucose 100, lactic acid 1.1, magnesium 2.1, UA negative. June 01, 2022: patient was seen evaluated. His is at bedside. Cardiology and neurology notes review today. He was admitted with increased weakness and falling. I discuss this with his several days previous to admission. Encouraged her to go to the emergency room to rule out any acute infections. We discussed that this may be just worsening of his dementia.Today nursing reports some paranoia with feeding.Vitals are stable.Patients awake alert in oriented times zero at this point. He's very confused. 06/02/2022, overnight the patient's been complaining of some heartburn. Staff requested in order. He's been started on Maalox and pantoprazole. He remains on aspirin and heparin for anticoagulation and antiplatelet effect. He remains on lisinopril and Lopressor for hypertension, Seroquel for insomnia and delirium, amantadine for dementia, melatonin for insomnia, folic acid 4 deficiency, and Sinemet for tremors per neurology. Cardiology signed out. Neurology is on the case following him. He is undergoing physical therapy and occupational therapy for debility. Vital signs are stable, heart rate and blood pressure control. Pulse oximetry stable. Laboratories show improved even and creatinine. Objective - Vital Signs Vital signs: Vital Signs Temp 97.6 F 06/02/22 07:54 Pulse 62 06/02/22 08:15 Resp 12 06/02/22 08:15 BP 127/67 06/02/22 07:54 Pulse Ox 97 06/02/22 07:54 FiO2 Intake & Output 06/01/22 06/02/22 06/02/22 18:59 06:59 18:59 Intake Total 476 120 Output Total 650 125 250 Balance -174 -125 -130 Weight 74.843 kg Intake: Oral 476 120 Output: Urine 650 125 250 Other: Voiding Method Urinal Urinal Urinal Diaper Diaper Diaper Incontinent Incontinent Incontinent # Voids 1 # Bowel Movements 0 - Exam GENERAL: in bed no acute distress, he is awake alert and oriented 2 today. NECK: Supple, No JVD. No thyroid enlargement. No LNs CARDIOVASCULAR: S1, S2 regular. Systolic murmur RESPIRATION: Breath sounds diminished in the bases. No rhonchi or crackles. No bronchial breathing. ABDOMEN: Soft, nontender . No guarding. no masses palpable. No ascites, No hepatosplenomegaly. Bowel sounds heard. LEGS: No edema. no swelling PSYCHIATRY: Alert and oriented X2, pleasantly confused, cooperative, mentation and wakefulness much improved from yesterday NERVOUS SYSTEM: Cranial nerves II through XII are intact no evident localized weakness. - Labs CBC & Chem 7: 06/01/22 07:55 06/02/22 07:56 Labs: Abnormal Lab Results - Last 24 Hours (Table) 06/02/22 Range/Units 07:56 Chloride 111 H (98-107) mmol/L BUN 33 H (9-20) mg/dL Assessment and Plan (1) Multiple falls Current Visit: Yes Status: Acute Code(s): R29.6 - REPEATED FALLS SNOMED Code(s): 719272102 (2) Weakness Current Visit: Yes Status: Acute Code(s): R53.1 - WEAKNESS SNOMED Code(s): 13111733 (3) Dehydration Current Visit: Yes Status: Acute Code(s): E86.0 - DEHYDRATION SNOMED Code(s): 15812494 (4) Acute renal failure (ARF) Current Visit: Yes Status: Acute Code(s): N17.9 - ACUTE KIDNEY FAILURE, UNS PECIFIED SNOMED Code(s): 15112218 (5) Essential (primary) hypertension Current Visit: Yes Status: Acute Code(s): I10 - ESSENTIAL (PRIMARY) HYPERTENSION SNOMED Code(s): 04402923 (6) Hyperlipidemia, unspecified Current Visit: Yes Status: Acute Code(s): E78.5 - HYPERLIPIDEMIA, UNSPECIFIED SNOMED Code(s): 33440567 (7) Tremor Current Visit: Yes Status: Acute Code(s): R25.1 - TREMOR, UNSPECIFIED SNOMED Code(s): 26408663 (8) Lewy body dementia Current Visit: Yes Status: Acute Code(s): G31.83 - NEUROCOGNITIVE DISORDER WITH LEWY BODIES; F02.80 - DEM IN OTH DIS CLASSD ELSWHR,UNSP SEV,W/O BEH/PSYCH/MOOD/ANX SNOMED Code(s): 327532093 Plan: Lewey body dementia:Currently worsening, neurology is following, Continue amantadine and Seroquel. tremor: Continue Sinemet per neurology Generalized weakness -worsening with recurrent falls over the last week:PT/OT evaluate and treat, plan placement Elevated troponins;ACS not suspected as per cardiology, Continue aspirin GERD: Maalox as ordered along with the pantoprazole daily. We'll have staff monitor this, has not had a bowel movement since arrival and Colace for this. Dehydration:Resolving it with IV fluid Acute renal insufficiency secondary to the above Thrombocytopenia:Will monitor CAD, history of CABG, stentingCardiology has seen the patient and have no further recommendations. Hypertension: continue lisinopril Hyperlipidemia: no meds at this time Plan: Continue on current medication regime Cardiology is now signed off. neurology following PT/OT,social work consulted for placement. placement once stable repeat labs in am reevaluate in 24 hrs
--- NOTE | 2022-06-02 12:16 | P.PN ---
Subjective Progress Note Date: 06/02/22 The patient is seen at bedside and per nurse no new neurological issues. He seems more awake today. Objective - Vital Signs Vital signs: Vital Signs Temp 97.6 F 06/02/22 07:54 Pulse 64 06/02/22 11:03 Resp 16 06/02/22 11:03 BP 110/68 06/02/22 11:03 Pulse Ox 97 06/02/22 11:03 FiO2 Intake & Output 06/01/22 06/02/22 06/02/22 18:59 06:59 18:59 Intake Total 476 120 Output Total 650 125 250 Balance -174 -125 -130 Weight 74.843 kg Intake: Oral 476 120 Output: Urine 650 125 250 Other: Voiding Method Urinal Urinal Urinal Diaper Diaper Diaper Incontinent Incontinent Incontinent # Voids 1 # Bowel Movements 0 - Exam GENERAL: The patient is lying in bed and is not in acute distress. NEUROLOGICAL: Higher mental function: The patient is even more awake today compared to yesterday. Oriented to self, place and stated the current month but stated the current year is 2019. Patient is following commands. No aphasia and no neglect. Cranial nerves: The pupils are round, equal and reactive to light. Visual almaraz are full to confrontation throughout. Extraocular movement is intact no nystagmus is noted. Facial sensation is normal to touch throughout. The facial strength is normal throughout. Tongue is midline and moved [id number] without any difficulty. No dysarthria is noted. Has hypophonia. Shoulder shrug is normal bilaterally. Motor: The strength is increase tone in uppers but able to lift above gravity. I feel less tremors in uppers and feels the increase tone in uppers is improving. Normal bulk. Cerebellum: Unable to assess. Sensation: Sensation is normal to touch throughout. Some of the workup during this hospital visit consisted of: CT of the head is reported as no acute intracranial process. Nonspecific white matter changes, likely secondary to chronic small vessel ischemic disease. CT cervical spine was reported as no evidence of cervical spine fracture. Moderate multilevel degenerative disc disease. Platelet count is 123,000. White blood cell is within normal limits Creatinine is 1.34 serum glucose on initial presentation is 100 otherwise a calcium, magnesium AST and ALT is within normal limits Troponin is 0.186 Urine analysis seems negative for urinary tract infection. Vitamin B12 is 202 which she is considered deficient Folate is 8.90 TSH is 0.658 - Labs CBC & Chem 7: 06/01/22 07:55 06/02/22 07:56 Labs: Abnormal Lab Results - Last 24 Hours (Table) 06/02/22 Range/Units 07:56 Chloride 111 H (98-107) mmol/L BUN 33 H (9-20) mg/dL Assessment and Plan Assessment: Recurrent falls due to his reported diagnosis of Lewy body dementia for the past one week Reported history of Lewy body dementia by his neurologist Vitamin B12 deficiency Slightly elevated troponin Acute kidney insuffiency likely due to dehydration Thrombocytopenia History of CAD s/p CABG Plan: He was diagnosed with lower body dementia and I'm not sure if he truly has Lewy body versus advanced Parkinson's disease. I started the patient on Sinemet 25-100mg 1 tab tid (which he was not on prior) and I feel there is some improvement in tremors and tone. Family members has notified the nurse that they do feel benefit after start of Sinement. For the vitamin B12 deficiency I started the patient on IM thousand micrograms for today and tomorrow then after that by mouth and then I recommend in that 2-3 weeks to check the B12 as an outpatient Continue folic acid 1 mg daily since he had subtle low normal of folate but not deficient According to the daughter he has REM behavior disorder and I will start him on melatonin 3mg qhs. I highly recommend at sleep study as an outpatient Pending orthostatic vital signs Physical therapy and occupation therapy is a consulted Patient had a recent MRI of the brain on 10/30/2021 in our facility and is reported as age-related atrophy and probable chronic small vessel ischemia. There is motion on that exam. I'll hold off on getting a repeat MRI for now. If patient has any further episodes of confusion I will order a routine EEG to rule out any seizures or discharges Cardiology is consulted for elevated troponin We'll defer the rest of the medical metastatic to the primary team Upon discharge the patient needs to follow-up with his neurologist as an outpatient (Dr. Fraire) within 1-2 weeks. The plan was discussed with the nurse. Otherwise no additional neurological work-up. Time with Patient: Less than 30
[2022-06-02] MEDS: QUEtiapine 50 MG TAB PO SCH (20:28)
[2022-06-02] MEDS: MELATONIN 3 MG TABLET PO SCH (20:28)
[2022-06-02] MEDS: LATANOPROST 0.005% OPHTH DROPS 2.5 ML BTL BOTH EYES SCH (20:29)
[2022-06-03] MEDS: HEPARIN SODIUM,PORCINE/PF 5,000 UNIT/0.5 ML SYRINGE SQ SCH ×4 (03:39→23:53)
[2022-06-03] MEDS: PANTOPRAZOLE 40 MG TABLET PO SCH (06:23)
[2022-06-03] MEDS: METOPROLOL TARTRATE 50 MG TAB PO SCH ×2 (06:24→15:48)
[2022-06-03] MEDS: FOLIC ACID 1 MG TAB PO SCH (07:53)
[2022-06-03] MEDS: CARBIDOPA-LEVODOPA 25-100 MG 1 EACH TAB PO SCH ×3 (07:53→21:32)
[2022-06-03] MEDS: CYANOCOBALAMIN 500 MCG TAB PO SCH (07:53)
[2022-06-03] MEDS: DOCUSATE 100 MG CAP PO SCH (07:53)
[2022-06-03] MEDS: lisinopriL 5 MG TAB PO SCH (07:53)
[2022-06-03] MEDS: MEMANTINE 10 MG TAB PO SCH ×2 (07:53→20:48)
[2022-06-03] MEDS: ASPIRIN 81 MG PO SCH (07:53)
--- NOTE | 2022-06-03 10:47 | P.PN ---
Subjective 05/31/22 This is an 86-year-old gentleman with past medical history of Lewey body dementia, no Parkinson disease diagnosis as per daughter, CAD, CABG, stenting, hypertension, hyperlipidemia and multiple other medical issues presented to the ER with increased weakness, recurrent falls, family unable to continue taking care of patient-agreeable to placement. Family reports no aggression. Patient denies nausea vomiting or diarrhea. Denies abdominal pain. . Patient lives in a trilevel house with his elderly and has had increased falls over the last week and she is physically unable to help him up. Hypertensive, systolic blood pressure to 168/82. Denies chest pain palpitations or shortness of breath. Troponins 0.186, 0.184 .Chest x-ray reported no acute process. CT of brain ,C- spine reported no acute intracranial process, nonspecific white matter changes likely secondary to chronic small vessel ischemic disease, no evidence of c ervical spine fracture, moderate multilevel degenerative disc disease. Afebrile, normal WBC, hemoglobin 12.4, platelets 123, INR 1, sodium 144, bicarb 21, BUN 41, creatinine 1.34, glucose 100, lactic acid 1.1, magnesium 2.1, UA negative. June 01, 2022: patient was seen evaluated. His is at bedside. Cardiology and neurology notes review today. He was admitted with increased weakness and falling. I discuss this with his several days previous to admission. Encouraged her to go to the emergency room to rule out any acute infections. We discussed that this may be just worsening of his dementia.Today nursing reports some paranoia with feeding.Vitals are stable.Patients awake alert in oriented times zero at this point. He's very confused. 06/02/2022, overnight the patient's been complaining of some heartburn. Staff requested in order. He's been started on Maalox and pantoprazole. He remains on aspirin and heparin for anticoagulation and antiplatelet effect. He remains on lisinopril and Lopressor for hypertension, Seroquel for insomnia and delirium, amantadine for dementia, melatonin for insomnia, folic acid 4 deficiency, and Sinemet for tremors per neurology. Cardiology signed out. Neurology is on the case following him. He is undergoing physical therapy and occupational therapy for debility. Vital signs are stable, heart rate and blood pressure control. Pulse oximetry stable. Laboratories show improved even and creatinine. 06/03/2022: Patient remained stable overnight. He indicates he did have some heartburn several nights ago and has not recurred. Vital signs remained stable. He is afebrile. Laboratory studies are pending. Objective - Vital Signs Vital signs: Vital Signs Temp 97.7 F 06/03/22 07:46 Pulse 70 06/03/22 07:46 Resp 16 06/03/22 07:46 BP 131/65 06/03/22 07:46 Pulse Ox 98 06/03/22 07:46 FiO2 Intake & Output 06/02/22 06/03/22 06/03/22 18:59 06:59 18:59 Intake Total 240 236 Output Total 550 375 Balance -310 -139 Intake: Oral 240 236 Output: Urine 550 375 Other: Voiding Method Urinal Urinal Urinal Diaper Diaper Diaper Incontinent Incontinent Incontinent # Voids 1 - Exam GENERAL: in bed no acute distress, he is awake alert and oriented 2 today. NECK: Supple, No JVD. No thyroid enlargement. No LNs CARDIOVASCULAR: S1, S2 regular. Systolic murmur RESPIRATION: Breath sounds diminished in the bases. No rhonchi or crackles. No bronchial breathing. ABDOMEN: Soft, nontender . No guarding. no masses palpable. No ascites, No hepatosplenomegaly. Bowel sounds heard. LEGS: No edema. no swelling PSYCHIATRY: Alert and oriented X2, pleasantly confused, cooperative, mentation and wakefulness much improved from yesterday NERVOUS SYSTEM: Cranial nerves II through XII are intact no evident localized weakness. - Labs CBC & Chem 7: 06/01/22 07:55 06/02/22 07:56 Assessment and Plan (1) Multiple falls Current Visit: Yes Status: Acute Code(s): R29.6 - REPEATED FALLS SNOMED Code(s): 223121426 (2) Weakness Current Visit: Yes Status: Acute Code(s): R53.1 - WEAKNESS SNOMED Code(s): 70883988 (3) Dehydration Current Visit: Yes Status: Acute Code(s): E86.0 - DEHYDRATION SNOMED Code(s): 87376049 (4) Acute renal failure (ARF) Current Visit: Yes Status: Acute Code(s): N17.9 - ACUTE KIDNEY FAILURE, UNSPECIFIED SNOMED Code(s): 75008218 (5) Essential (primary) hypertension Current Visit: Yes Status: Acute Code(s): I10 - ESSENTIAL (PRIMARY) HYPERTENSION SNOMED Code(s): 75719602 (6) Hyperlipidemia, unspecified Current Visit: Yes Status: Acute Code(s): E78.5 - HYPERLIPIDEMIA, UNSP ECIFIED SNOMED Code(s): 00114421 (7) Tremor Current Visit: Yes Status: Acute Code(s): R25.1 - TREMOR, UNSPECIFIED SNOMED Code(s): 31325732 (8) Lewy body dementia Current Visit: Yes Status: Acute Code(s): G31.83 - NEUROCOGNITIVE DISORDER WITH LEWY BODIES; F02.80 - DEM IN OTH DIS CLASSD ELSWHR,UNSP SEV,W/O BEH/PSYCH/MOOD/ANX SNOMED Code(s): 865720510 Plan: Lewey body dementia:Currently worsening, neurology is following, Continue amantadine and Seroquel. tremor: Continue Sinemet per neurology, they indicate tremors are improved. Generalized weakness -worsening with recurrent falls over the last week:PT/OT following, planning ECF tomorrow Elevated troponins;ACS not suspected as per cardiology, Continue aspirin GERD: Continue Maalox , pantoprazole daily. Staff to monitor Dehydration:Resolving it with IV fluid Acute renal insufficiency secondary to the above Thrombocytopenia:Will monitor CAD, history of CABG, stentingCardiology has seen the patient and have no further recommendations. Hypertension: continue lisinopril Hyperlipidemia: no meds at this time Plan: Continue on current medication regime Cardiology is now signed off. neurology following PT/OT,social work consulted for placement. placement in a.m. at either [facility] or [facility] on the leg per family request
[2022-06-03 12:12] LABS: Basophils % (A) 1 %; Eosinophils # (A) 0.1 k/uL (0-0.7); Eosinophils % (A) 2 %; HCT 35.9 % (39.0-53.0); HGB 12.4 gm/dL (13.0-17.5); Lymphocytes # (A) 1.1 k/uL (1.0-4.8); Lymphocytes % (A) 19 %; MCH 33.4 pg (25.0-35.0); MCHC 34.4 g/dL (31.0-37.0); MCV 96.9 fL (80.0-100.0); Mean Platelet Volume 9.1; Monocytes # (A) 0.4 k/uL (0-1.0); Monocytes % (A) 6 %; Neutrophils # (A) 4.1 k/uL (1.3-7.7); Neutrophils % (A) 69 %; Platelet Count 169 k/uL (150-450); RDW 13.5 % (11.5-15.5); WBC 5.9 k/uL (3.8-10.6)
[2022-06-03 12:31] LABS: Calcium 8.8 mg/dL (8.4-10.2); Potassium 4.5 mmol/L (3.5-5.1)
[2022-06-03] MEDS: LATANOPROST 0.005% OPHTH DROPS 2.5 ML BTL BOTH EYES SCH (20:48)
[2022-06-03] MEDS: MELATONIN 3 MG TABLET PO SCH (20:48)
[2022-06-03] MEDS: QUEtiapine 50 MG TAB PO SCH (20:48)
[2022-06-04] MEDS: METOPROLOL TARTRATE 50 MG TAB PO SCH ×2 (06:44→16:37)
[2022-06-04] MEDS: PANTOPRAZOLE 40 MG TABLET PO SCH (06:44)
[2022-06-04] MEDS: MEMANTINE 10 MG TAB PO SCH ×2 (08:48→20:57)
[2022-06-04] MEDS: HEPARIN SODIUM,PORCINE/PF 5,000 UNIT/0.5 ML SYRINGE SQ SCH ×3 (08:48→23:52)
[2022-06-04] MEDS: lisinopriL 5 MG TAB PO SCH (08:48)
[2022-06-04] MEDS: FOLIC ACID 1 MG TAB PO SCH (08:48)
[2022-06-04] MEDS: CARBIDOPA-LEVODOPA 25-100 MG 1 EACH TAB PO SCH ×3 (08:48→21:00)
[2022-06-04] MEDS: ASPIRIN 81 MG PO SCH (08:48)
[2022-06-04] MEDS: CYANOCOBALAMIN 500 MCG TAB PO SCH (08:48)
[2022-06-04] MEDS: DOCUSATE 100 MG CAP PO SCH (08:48)
--- NOTE | 2022-06-04 10:16 | P.DS ---
Providers Date of admission: 05/31/22 09:18 Expected date of discharge: 06/04/22 Attending physician: Eugene Dimas Consults: 05/31/22 09:17 Consult Physician Urgent Consulting Provider: Ren Sapp Consult Reason/Comments: lewy body demenia, multiple falls Do you want consulting provider notified?: Yes Primary care physician: Pete Guthrie [facility] Course: Final Diagnoses: (1) Multiple falls Current Visit: Yes Status: Acute Code(s): R29.6 - REPEATED FALLS SNOMED Code(s): 956449035 (2) Weakness Current Visit: Yes Status: Acute Code(s): R53.1 - WEAKNESS SNOMED Code(s): 20008048 (3) Dehydration Current Visit: Yes Status: Acute Code(s): E86.0 - DEHYDRATION SNOMED Code(s): 86696391 (4) Acute renal failure (ARF) secondary to the above Current Visit: Yes Status: Acute Code(s): N17.9 - ACUTE KIDNEY FAILURE, UNSPECIFIED SNOMED Code(s): 39107283 (5) Essential (primary) hypertension Current Visit: Yes Status: Acute Code(s): I10 - ESSENTIAL (PRIMARY) HYPERTENSION SNOMED Code(s): 30763944 (6) Hyperlipidemia, unspecified Current Visit: Yes Status: Acute Code(s): E78.5 - HYPERLIPIDEMIA, UNSPECIFIED SNOMED Code(s): 27180018 (7) Tremor Current Visit: Yes Status: Acute Code(s): R25.1 - TREMOR, UNSPECIFIED SNOMED Code(s): 29694123 (8) Lewy body dementia Current Visit: Yes Status: Acute Code(s): G31.83 - NEUROCOGNITIVE DISORDER WITH LEWY BODIES; F02.80 - DEM IN OTH DIS CLASSD ELSWHR,UNSP SEV,W/O BEH/PSYCH/MOOD/ANX SNOMED Code(s): 049638927 (9) vitamin B12 deficiency Hospital course:This is an 86-year-old gentleman with past medical history of Lewey body dementia, no Parkinson disease diagnosis as per daughter, CAD, CABG, stenting, hypertension, hyperlipidemia and multiple other medical issues presented to the ER with increased weakness, recurrent falls, family unable to continue taking care of patient-agreeable to placement. Family reports no aggression. Patient denies nausea vomiting or diarrhea. Denies abdominal pain. . Patient lives in a trilevel house with his elderly and has had increased falls over the last week and she is physically unable to help him up. Hypertensive, systolic blood pressure to 168/82. Denies chest pain palpitations or shortness of breath. Troponins 0.186, 0.184 .Chest x-ray reported no acute process. CT of brain ,C-spine reported no acute intracranial process, nonspecific white matter changes likely secondary to chronic small vessel ischemic disease, no evidence of cervical spine fracture, moderate multilevel degenerative disc disease. Afebrile, normal WBC, hemoglobin 12.4, platelets 123, INR 1, sodium 144, bicarb 21, BUN 41, creatinine 1.34, glucose 100, lactic acid 1.1, magnesium 2.1, UA negative. June 01, 2022: patient was seen evaluated. His is at bedside. Cardiology and neurology notes review today. He was admitted with increased weakness and falling. I discuss this with his several days previous to admission. Encouraged her to go to the emergency room to rule out any acute infections. We discussed that this may be just worsening of his dementia.Today nursing reports some paranoia with feeding.Vitals are stable.Patients awake alert in oriented times zero at this point. He's very confused. 06/02/2022, overnight the patient's been complaining of some heartburn. Staff requested in order. He's been started on Maalox and pantoprazole. He remains on aspirin and heparin for anticoagulation and antiplatelet effect. He remains on lisinopril and Lopressor for hypertension, Seroquel for insomnia and delirium, amantadine for dementia, melatonin for insomnia, folic acid 4 deficiency, and Sinemet for tremors per neurology. Cardiology signed out. Neurology is on the case following him. He is undergoing physical therapy and occupational therapy for debility. Vital signs are stable, heart rate and blood pressure control. Pulse oximetry stable. Laboratories show improved even and creatinine. 06/03/2022: Patient remained stable overnight. He indicates he did have some heartburn several nights ago and has not recurred. Vital signs remained stable. He is afebrile. Laboratory studies are pending. Vitamin B12 initiated with levels recommended to be rechecked in 2-3 weeks ou tpatient. Sinemet also initiated with improvement in tremors and tone reported. Evaluated by cardiology, acute coronary syndrome ruled out. Significant clinical improvement. Patient will be discharged to subacute rehab., Pending final DC recommendations and clearance per neurology. The impression and plan of care has been dictated as directed. : I performed a history and examination of this patient, discussed the same with the dictator. I agree with the dictator's note ,documented as a scribe. Any additional findings or plans will be noted. Patient Condition at Discharge: Stable Plan - Discharge Summary Discharge Rx Participant: No New Discharge Prescriptions: New Docusate [Colace] 100 mg PO DAILY cap Folic Acid 1 mg PO DAILY tab Mag Hydrox/Al Hydrox/Simeth [Maalox] 30 ml PO Q2HR PRN ml PRN Reason: Heartburn Melatonin 3 mg PO HS tab Pantoprazole [Protonix] 40 mg PO AC-BRKFST tab Carbidopa-Levodopa 25-100 mg [Sinemet 25-100 mg] 1 each PO TID tab Cyanocobalamin [Vitamin B-12] 1,000 mcg PO DAILY tab Continue Latanoprost [Xalatan 0.005%] 1 drop BOTH EYES HS QUEtiapine [SEROquel] 50 mg PO HS Metoprolol Tartrate [Lopressor] 50 mg PO BID-W/MEALS Memantine [Namenda] 10 mg PO BID Topanga-3 Fatty Acids/Fish Oil [Fish Oil 1,000 mg Softgel] 1 cap PO DAILY Aspirin EC [Ecotrin Low Dose] 81 mg PO DAILY Discontinued lisinopriL [Zestril] 5 mg PO DAILY Discharge Medication List Aspirin EC [Ecotrin Low Dose] 81 mg PO DAILY 11/10/21 [History] Latanoprost [Xalatan 0.005%] 1 drop BOTH EYES HS 11/10/21 [History] Memantine [Namenda] 10 mg PO BID 11/10/21 [History] Metoprolol Tartrate [Lopressor] 50 mg PO BID-W/MEALS 11/10/21 [History] Topanga-3 Fatty Acids/Fish Oil [Fish Oil 1,000 mg Softgel] 1 cap PO DAILY 11/10/21 [History] QUEtiapine [SEROquel] 50 mg PO HS 05/31/22 [History] Carbidopa-Levodopa 25-100 mg [Sinemet 25-100 mg] 1 each PO TID tab 06/04/22 [Rx] Cyanocobalamin [Vitamin B-12] 1,000 mcg PO DAILY tab 06/04/22 [Rx] Docusate [Colace] 100 mg PO DAILY cap 06/04/22 [Rx] Folic Acid 1 mg PO DAILY tab 06/04/22 [Rx] Mag Hydrox/Al Hydrox/Simeth [Maalox] 30 ml PO Q2HR PRN ml 06/04/22 [Rx] Melatonin 3 mg PO HS tab 06/04/22 [Rx] Pantoprazole [Protonix] 40 mg PO AC-BRKFST tab 06/04/22 [Rx] Follow up Appointment(s)/Referral(s): Pete Carlson MD [Primary Care Provider] - 3 Days Gil Fraire DO [STAFF PHYSICIAN] - 2 Weeks Activity/Diet/Wound Care/Special Instructions: ECF: CBC,BMP in 3 days recheck B12 level in 2 -3 weeks Radames inhib. on hold, r/t renal fx Discharge/Stand Alone Forms: Adult Foster Custodial List, Assisted Living Facilities, Personal Director Of Cloud Services Discharge Disposition: TRANSFER TO SNF/ECF
[2022-06-04] MEDS ORDERED: polyethylene glycoL 3350 17 GM POWD.PACK PO STA (10:17)
[2022-06-04] MEDS: MELATONIN 3 MG TABLET PO SCH (20:57)
[2022-06-04] MEDS: QUEtiapine 50 MG TAB PO SCH (20:57)
[2022-06-04] MEDS: LATANOPROST 0.005% OPHTH DROPS 2.5 ML BTL BOTH EYES SCH (20:57)
[2022-06-05 05:40] VITALS: RESP 16
[2022-06-05] MEDS: METOPROLOL TARTRATE 50 MG TAB PO SCH ×2 (06:34→16:20)
[2022-06-05] MEDS: PANTOPRAZOLE 40 MG TABLET PO SCH (06:34)
[2022-06-05] MEDS: FOLIC ACID 1 MG TAB PO SCH (07:47)
[2022-06-05] MEDS: HEPARIN SODIUM,PORCINE/PF 5,000 UNIT/0.5 ML SYRINGE SQ SCH ×3 (07:47→23:45)
[2022-06-05] MEDS: MEMANTINE 10 MG TAB PO SCH ×2 (07:47→19:49)
[2022-06-05] MEDS: CARBIDOPA-LEVODOPA 25-100 MG 1 EACH TAB PO SCH ×3 (07:47→19:49)
[2022-06-05] MEDS: CYANOCOBALAMIN 500 MCG TAB PO SCH (07:47)
[2022-06-05] MEDS: ASPIRIN 81 MG PO SCH (07:48)
[2022-06-05] MEDS: lisinopriL 5 MG TAB PO SCH (07:48)
[2022-06-05] MEDS: DOCUSATE 100 MG CAP PO SCH (07:48)
[2022-06-05] MEDS: QUEtiapine 50 MG TAB PO SCH (19:48)
[2022-06-05] MEDS: MELATONIN 3 MG TABLET PO SCH (19:48)
[2022-06-05] MEDS: LATANOPROST 0.005% OPHTH DROPS 2.5 ML BTL BOTH EYES SCH (19:49)
[2022-06-06 06:55] VITALS: BP 112/65; PULSE 75; TEMP 97.4
[2022-06-06] MEDS: METOPROLOL TARTRATE 50 MG TAB PO SCH (06:55)
[2022-06-06] MEDS: PANTOPRAZOLE 40 MG TABLET PO SCH (06:55)
[2022-06-06] MEDS: MEMANTINE 10 MG TAB PO SCH (09:04)
[2022-06-06] MEDS: ASPIRIN 81 MG PO SCH (09:05)
[2022-06-06] MEDS: CARBIDOPA-LEVODOPA 25-100 MG 1 EACH TAB PO SCH (09:05)
--- NOTE | 2022-06-06 09:05 | P.CONS ---
History of Present Illness - Reason for Consult Consult date: 06/05/22 Goals of care Requesting physician: Emerita Armstrong - Chief Complaint weakness and falls - History of Present Illness This is an 86-year-old gentleman with past medical history of Lewey body dementia, no Parkinson disease diagnosis as per daughter, CAD, CABG, stenting, hypertension, hyperlipidemia and multiple other medical issues. He presented to the ER on 05/31/22 with increased weakness, recurrent falls, family unable to continue taking care of patient-agreeable to placement. Family reports no aggression. Patient denies nausea vomiting or diarrhea. Denies abdominal pain. . Patient lives in a tri level house with his elderly and has had increased falls over the last week and she is physically unable to help him up. Denies chest pain palpitations or shortness of breath. Chest x-ray reported no acute process. CT of brain ,C-spine reported no acute intracranial process, nonspecific white matter changes likely secondary to chronic small vessel ischemic disease, no evidence of cervical spine fracture, moderate multilevel degenerative disc disease. Review of Systems Constitutional: Reports as per HPI Past Medical History Past Medical History: Dementia Additional Past Medical History / Comment(s): LEWY BODY DEMENTIA History of Any Multi-Drug Resistant Organisms: None Reported Past Surgical History: Coronary Bypass/CABG Past Anesthesia/Blood Transfusion Reactions: No Reported Reaction Past Psychological History: No Psychological Hx Reported Smoking Status: Never smoker Past Alcohol Use History: None Reported Past Drug Use History: None Reported Medications and Allergies Home Medications Medication Instructions Recorded Confirmed Type Aspirin EC [Ecotrin Low Dose] 81 mg PO DAILY 11/10/21 05/31/22 History Latanoprost [Xalatan 0.005%] 1 drop BOTH EYES HS 11/10/21 05/31/22 History Memantine [Namenda] 10 mg PO BID 11/10/21 05/31/22 History Metoprolol Tartrate [Lopressor] 50 mg PO BID-W/MEALS 11/10/21 05/31/22 History Gray-3 Fatty Acids/Fish Oil [Fish 1 cap PO DAILY 11/10/21 05/31/22 History Oil 1,000 mg Softgel] QUEtiapine [SEROquel] 50 mg PO HS 05/31/22 05/31/22 History Carbidopa-Levodopa 25-100 mg 1 each PO TID tab 06/04/22 Rx [Sinemet 25-100 mg] Cyanocobalamin [Vitamin B-12] 1,000 mcg PO DAILY tab 06/04/22 Rx Docusate [Colace] 100 mg PO DAILY cap 06/04/22 Rx Folic Acid 1 mg PO DAILY tab 06/04/22 Rx Mag Hydrox/Al Hydrox/Simeth 30 ml PO Q2HR PRN ml 06/04/22 Rx [Maalox] Melatonin 3 mg PO HS tab 06/04/22 Rx Pantoprazole [Protonix] 40 mg PO AC-BRKFST tab 06/04/22 Rx Sennosides-Docusate Sodium 2 tab PO HS #30 tablet 06/04/22 Rx [Senokot-S] Allergies Allergy/AdvReac Type Severity Reaction Status Date / Time No Known Allergies Allergy Verified 05/31/22 11:20 Physical Exam Vitals: Vital Signs Temp Pulse Resp BP Pulse Ox 06/06/22 06:54 97.4 F L 75 16 112/65 97 06/05/22 22:01 16 06/05/22 20:00 98.1 F 71 16 112/59 98 06/05/22 14:37 97.4 F L 66 16 107/63 100 06/05/22 11:05 64 16 93/57 97 Intake and Output 06/05/22 06/06/22 06/06/22 22:59 06:59 14:59 Intake Total 118 Output Total 500 Balance -382 Intake: Oral 118 Output: Urine 500 Other: Voiding Method Urinal Diaper Incontinent # Voids 2 # Bowel Movements 1 General: Well developed male. No acute distress. Chronically ill appearing HEENT: Head is atraumatic, normocephalic. CV: Heart regular in rate and rhythm positive S1 and S2. Lungs: Diminished bases bilaterally. No wheezes rales or rhonchi. Respirations even and nonlabored. Abdomen/GI: Soft. No guarding, rigidity, or abdominal tenderness. Vascular: No peripheral edema Skin: Warm and dry Neurologic: CN II-XII grossly intact. A&O x 2 Results CBC & Chem 7: 06/03/22 11:47 06/03/22 11:47 CT Scan - head: report reviewed Assessment and Plan Assessment: Symptoms - Information obtained from a combination of and patient. He was unable to stay awake * Pain - CPOT 0/10 * Fatigue - Lethargic, + generalized weakness and fatigue * SOB - No * Insomnia - Yes, continue melatonin * N/V - No * Anxiety - No * Depression - No * Confusion - YEs, Continue Namenda * Agitation - No * Hallucinations - No * Appetite/weight loss - Poor appetite * Dysphagia - Occasionally * Constipation - Yes, LBM 06/01, continue colace * Incontinence - Yes, wears briefs * Itch - NO * Cough - no Plan: Summary/Goals - The patient is resting in bed and appears comfortable. His , Daisha, is at the bedside. He lives with his in a tri-level home. Daisha states he normally walks with a walker. She helps him with dressing and bathing. He has had increased weakness and falls over the last 2 weeks and he was unable to walk upon admission. Daisha states she is unable to care for him at home. Education was provided regarding Lewy body dementia and it's progression. Daisha verbalized understanding and has a good knowledge base. She has had end of life conversations with her in the past. She had heard that when the disease gets this advanced that it is good to get hospice involved sooner rather than later. Information regarding hospice philosophies and services provided. It was agreed that hospice is a good fit for the patient at this point. Daisha is unable to take care of the patient at home. She stated she has a lot of friends and family in the [place] area. She has heard great things about the [facility] and would have good support there. order processing manager notified. A consult and referral was placed. Recommendations - [facility] Advanced Directives - None on file, to bring in Code Status - DNR Thank you for this consultation Crhissy Ritchie [facility]- Palliative Care [facility] [id number] Email: [email or web address] Time with Patient: Greater than 30
[2022-06-06] MEDS: FOLIC ACID 1 MG TAB PO SCH (09:06)
[2022-06-06] MEDS: CYANOCOBALAMIN 500 MCG TAB PO SCH (09:06)
[2022-06-06] MEDS: HEPARIN SODIUM,PORCINE/PF 5,000 UNIT/0.5 ML SYRINGE SQ SCH (09:07)
[2022-06-06] MEDS: DOCUSATE 100 MG CAP PO SCH (09:07)
--- NOTE | 2022-06-06 12:54 | P.PN ---
Subjective Progress Note Date: 06/06/22 Principal diagnosis: Lewy body dementia This is an 86-year-old gentleman with past medical history of Lewey body dementia, no Parkinson disease diagnosis as per daughter, CAD, CABG, stenting, hypertension, hyperlipidemia and multiple other medical issues. He presented to the ER on 05/31/22 with increased weakness, recurrent falls, family unable to continue taking care of patient-agreeable to placement. Family reports no aggression. Patient denies nausea vomiting or diarrhea. Denies abdominal pain. . Patient lives in a tri level house with his elderly and has had increased falls over the last week and she is physically unable to help him up. Denies chest pain palpitations or shortness of breath. Chest x-ray reported no acute process. CT of brain ,C-spine reported no acute intracranial process, nonspecific white matter changes likely secondary to chronic small vessel ischemic disease, no evidence of cervical spine fracture, moderate multilevel degenerative disc disease. 06/05 The patient is resting in bed and appears comfortable. His , Daisha, is at the bedside. He lives with his in a tri-level home. Daisha states he normally walks with a walker. She helps him with dressing and bathing. He has had increased weakness and falls over the last 2 weeks and he was unable to walk upon admission. Daisha states she is unable to care for him at home. Education was provided regarding Lewy body dementia and it's progression. Daisha verbalized understanding and has a good knowledge base. She has had end of life conversations with her in the past. She had heard that when the disease gets this advanced that it is good to get hospice involved sooner rather than later. Information regarding hospice philosophies and services provided. It was agreed that hospice is a good fit for the patient at this point. Daisha is unable to take care of the patient at home. She stated she has a lot of friends and family in the [place] area. She has heard great things about the [facility] and would have good support there. occupational therapy manager notified. A consult and referral was placed. Objective - Vital Signs Vital signs: Vital Signs Temp 97.4 F L 06/06/22 06:54 Pulse 75 06/06/22 06:54 Resp 16 06/06/22 09:48 BP 112/65 06/06/22 06:54 Pulse Ox 97 06/06/22 06:54 FiO2 Intake & Output 06/05/22 06/06/22 06/06/22 18:59 06:59 18:59 Intake Total 594 Output Total 750 Balance -156 Intake: Oral 594 Output: Urine 750 Other: Voiding Method Urinal Urinal Urinal Diaper Diaper Diaper Incontinent Incontinent Incontinent # Voids 2 # Bowel Movements 1 - Exam General: Well developed male. No acute distress. Chronically ill appearing HEENT: Head is atraumatic, normocephalic. CV: Heart regular in rate and rhythm positive S1 and S2. Lungs: Diminished bases bilaterally. No wheezes rales or rhonchi. Respirations even and nonlabored. Abdomen/GI: Soft. No guarding, rigidity, or abdominal tenderness. Vascular: No peripheral edema Skin: Warm and dry Neurologic: CN II-XII grossly intact. A&O x 2 - Labs CBC & Chem 7: 06/03/22 11:47 06/03/22 11:47 Assessment and Plan Assessment: Symptoms - Information obtained from a combination of and patient. He was unable to stay awake * Pain - CPOT 0/10 * Fatigue - Lethargic, + generalized weakness and fatigue * SOB - No * Insomnia - Yes, continue melatonin * N/V - No * Anxiety - No * Depression - No * Confusion - YEs, Continue Namenda * Agitation - No * Hallucinations - No * Appetite/weight loss - Poor appetite * Dysphagia - Occasionally * Constipation - Yes, LBM 05/26, continue colace * Incontinence - Yes, wears briefs * Itch - NO * Cough - no Plan: Summary/Goals - The patient has been accepted to [facility] in [place]. Transportation for transfer today is being arranged by case management. Recommendations - [facility] Advanced Directives - None on file, to bring in Code Status - DNR Thank you for this consultation Chrissy Ritchie [facility] Palliative Care [facility] [id number] Email: [email or web address] Time with Patient: Less than 30
--- NOTE | 2022-06-06 13:16 | P.PN ---
Progress Note - Text Progress Note Date: 06/05/22 Patient was seen examined today. He is pending acceptance at hospice home in [place]. He will go tomorrow once cleared.
--- NOTE | 2022-06-09 23:47 | CDI ---
Documentation Clarification Form Date: 06/09/2022 11:33:35 PM From: Emerita Moran Phone: Admit Date: 05/31/2022 09:18:00 AM Patient Name: Rodrigo Aguilera Visit Number: [id number] Discharge Date: 06/06/2022 02:25:00 PM ATTENTION: The Clinical Documentation Specialists (CDI) and [facility] Coding Staff appreciate your assistance in clarifying documentation. Please respond to the clarification below the line at the bottom and electronically sign. The CDI & [facility] Coding staff will review the response and follow-up if needed. Please note: Queries are made part of the Legal Health Record. If you have any questions, please contact the author of this message via ITS. Dr. Pete Carlson NSTEMI is documented per ED Note which may lack sufficient clinical evidence/support in the medical record. Additional clarification is requested. History/Risk Factors: 86yo M, elevated troponin, Lewy body dementia, ADELA, Hx falls, Dehydration, HTN, HLD, vitamin B12 deficiency, Thrombocytopenia, CAD sp CABG/stent Clinical Indicators: Troponin: 0.186 EKG reveals sinus mechanism with ST depression in V2V4 Chest x-ray chronic changes without evidence for acute process Treatment: ACS not suspected as per cardiology, Continue aspirin Please clarify if NSTEMI is a valid diagnosis? [ ] Yes, NSTEMI is present as evidence by (additional clinical support): [X ] No, NSTEMI is ruled out [ ] Other (please specify diagnosis) [ ] Unable to determine (Template Last Revised: September 2020) MTDD
== END 2022-06-06 14:25 | disposition still patient (30) | DRG 57 ==
LOC: EC 07:16 → 3SCARD 09:18 → 4SSUR 06-05 21:50
PROVIDERS: ADMIT Family Medicine; ATTEND Family Medicine
DX: G31.83 Neurocognitive disorder with Lewy bodies (principal); N17.9 Acute kidney failure, unspecified; F02.818 Dementia in other diseases classified elsewhere, unspecified severity, with other behavioral disturbance; D69.6 Thrombocytopenia, unspecified; I10 Essential (primary) hypertension; I08.3 Combined rheumatic disorders of mitral, aortic and tricuspid valves; E86.0 Dehydration; R29.6 Repeated falls; W19.XXXA Unspecified fall, initial encounter; E78.5 Hyperlipidemia, unspecified; R25.1 Tremor, unspecified; R63.30 Feeding difficulties, unspecified; G47.52 REM sleep behavior disorder; R01.1 Cardiac murmur, unspecified; R13.10 Dysphagia, unspecified; I25.10 Atherosclerotic heart disease of native coronary artery without angina pectoris; K59.00 Constipation, unspecified; R32 Unspecified urinary incontinence; Z66 Do not resuscitate; Z51.5 Encounter for palliative care; E53.8 Deficiency of other specified B group vitamins; G47.01 Insomnia due to medical condition; R12 Heartburn; R53.81 Other malaise; R77.8 Other specified abnormalities of plasma proteins; M50.30 Other cervical disc degeneration, unspecified cervical region; R63.0 Anorexia; Z28.311 Partially vaccinated for COVID-19; Z68.23 Body mass index [BMI] 23.0-23.9, adult; Z95.1 Presence of aortocoronary bypass graft; Y92.009 Unspecified place in unspecified non-institutional (private) residence as the place of occurrence of the external cause; Z79.82 Long term (current) use of aspirin; Z79.899 Other long term (current) drug therapy; Z95.5 Presence of coronary angioplasty implant and graft; Z91.81 History of falling
CPT/HCPCS: 36415; 70450; 71046; 72125; 80048; 80053; 81001; 82607; 82746; 83605; 83735; 84443; 84484; 85025; 85610; 85730; 93005; 93306; 99285